=== PATIENT | male | born 1985 | race Caucasian/White ===

== ENCOUNTER 2020-05-17 04:53 | Emergency (ER) | payer OTHER, SELFPAY ==
[2020-05-17 05:09] VITALS: PULSE 93; RESP 18; TEMP 36.8; O2SAT 95; BMI 26.6
--- NOTE | 2020-05-17 05:30 | ED.PSYCH ---
HPI - Psych General Chief Complaint: Psychiatric Symptoms Stated Complaint: section 12 Time Seen by Provider: 05/17/20 05:13 Related Data Allergies Allergy/AdvReac Type Severity Reaction Status Date / Time No Known Allergies Allergy Unverified 02/03/20 16:30 [No Known Allergies*] Review of Systems Review of Systems: Pertinent positives and negatives as stated in HPI 10 point review of systems is otherwise negative. PMFSH Past Medical History Source: nursing notes reviewed Social History Social History Alcohol intake: never Smoking Status: Current every day smoker Use of substances other than those prescribed or required for medical reasons: No Advance Directives: No Advance Directives Information Provided: No Physical Exam Vital Signs: Vital Signs: Last Vital Signs Temp 98.2 F 05/17/20 05:09 Pulse 93 05/17/20 05:09 Resp 18 05/17/20 05:09 Pulse Ox 95 05/17/20 05:09 Body Mass Index 26.6 VITAL SIGNS: Reviewed. GENERAL: Well developed, well nourished, in no acute distress. NECK: Supple, no adenopathy LUNGS: Normal breath sounds. No adventitious sounds or accessory muscle use. SpO2<95> CARDIOVASCULAR: Regular rate and rhythm without noted murmurs ABDOMEN: Soft, non-tender, non-distended with bowel sounds. NEUROLOGIC: Alert and oriented x 4. PSYCH: Mild raj, no grandiose thoughts, logical thought process Course Course Course Narrative: This is a 34-year-old male with history and clinical presentation consistent with behavioral outburst secondary to poorly managed bipolar condition. However, patient is not suicidal or homicidal and wishes to be discharged so that he can go to work. He is assessed to have logical thought process with a clear plan for his day. Patient was provided with community resources should he wish to pursue those. In addition, patient was strongly encouraged to return to the emergency department if he began feeling depressed, out of control, or simply felt that he needs someone to speak with. He was discharged in stable condition. MDM - Psych Restraints Face to Face Assessment: Face to Face Assessment: Current Situation: After assessment of the patient, a review of the pertinent medical record and a discussion with nursing staff, I feel the patient requires a restrain intervention. Reaction To: [] Medical Condition: [] Behavioral State: [] Continued Need: [] Discharge Plan Discharge Clinical Impression: Bipolar I disorder with raj Patient Disposition: Home, Self-Care Instructions: Bipolar Disorder (ED) Additional Instructions: Resume all home medications as prescribed. Please do not hesitate to seek help by calling 911 and returning to this emergency department for further evaluation should you feel depressed or suicidal at any time. Please follow-up with the list of therapists and resources that you have been provided. Interventions: ED Discharge Assessment Last Done: 05/17/20 05:54 Discharge Date/Time: 05/17/20 05:57
== END 2020-05-17 05:57 | disposition home or self-care (01) ==
PROVIDERS: Emergency Provider Student in an Organized Health Care Education/Training Program
DX: F30.9 Manic episode, unspecified (principal); F17.200 Nicotine dependence, unspecified, uncomplicated
CPT/HCPCS: 99284

== ENCOUNTER 2020-05-29 23:35 | Inpatient (IN) | payer OTHER, MEDICAID, SELFPAY ==
[2020-05-29 23:54] VITALS: BP 113/73; PULSE 70; RESP 18; TEMP 36.5; O2SAT 96; BMI 26.6
[2020-05-30 00:02] VITALS: BP 113/73; PULSE 70; RESP 18; TEMP 36.5; O2SAT 96
[2020-05-30 01:23] LABS: MANUAL DIFF FLAG NO
[2020-05-30 01:34] LABS: Basophils Percent Auto 0.2 % (0-2); Eosinophils Absolute Auto 0.2 X10*3/uL (0.0-0.4); Hematocrit 34.3 % (42-52); Hemoglobin 12.1 g/dl (14.0-18.0); Imm Gran Abs Auto 0.02 X10*3/uL (0.00-0.03); Imm Gran Pct Auto 0.3 % (0.0-0.4); Lymphocytes Absolute Auto 1.8 X10*3/uL (1.2-4.9); Lymphocytes Percent Auto 29.9 % (20-40); Mean Corpuscular HGB Conc 35.3 g/dl (31.0-36.0); Mean Corpuscular Hemoglobin 30.4 pg (27.0-33.0); Mean Corpuscular Volume 86.2 fL (80-98); Monocytes Absolute Auto 0.4 X10*3/uL (0.1-1.2); Monocytes Percent Auto 5.9 % (2-11); Neutrophils Absolute Auto 3.6 X10*3/uL (2.0-8.3); Neutrophils Percent Auto 60.7 % (45-73); Platelet Count 202 X10*3/uL (160-400); Red Blood Count 3.98 X10*6/uL (4.60-5.80); Red Cell Distribution Width 12.3 % (11.0-16.0)
[2020-05-30 01:48] LABS: Ethanol < 10 mg/dL
[2020-05-30 01:52] LABS: Alanine Aminotransferase 22 U/L (0-40); Albumin Level 4.1 g/dL (3.5-5.0); Alkaline Phosphatase 63 U/L (39-117); Anion Gap 12 (12-20); Aspartate Amino Transferase 32 U/L (5-37); Bilirubin Direct 0.2 mg/dL (0.0-0.5); Bilirubin Total 0.3 mg/dL (0.0-1.0); Blood Urea Nitrogen 14 mg/dL (9-16); Carbon Dioxide 29 mmol/L (22-29); Chloride 104 mmol/L (96-108); Creatinine Clr Calc Pharmacy 118.7; Estimated Glomerular Filt Rate > 60; Glucose Random 186 mg/dL (60-115); Potassium 3.8 mmol/l (3.3-5.1); Sodium 141 mmol/L (135-145); Total Protein 6.3 g/dL (6.5-8.0)
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
[2020-05-30] MEDS: traZODone HCL 100 MG TABLET PO (02:50)
[2020-05-30] MEDS: LORazepam 2 MG/ML VIAL IM (02:50)
--- NOTE | 2020-05-30 03:05 | PC.NURSE ---
Patient after talking with care team got severely agitated over unit's commotion, particularly towards a patient who has been yelling and screaming by saying, If I don't sleep no one sleeps. Patient was redirected offered medication options, requested Ativan IM/provider notified/ordered Ativan 2 mg IM/administered as ordered/patient compliant. Will continue to monitor.
--- NOTE | 2020-05-30 07:15 | PC.NURSE ---
Report received from GUTIERREZ Hagan. Pt resting, resp unlabored.
[2020-05-30 08:00] VITALS: RESP 20
[2020-05-30 10:00] VITALS: RESP 16
--- NOTE | 2020-05-30 10:55 | PC.NURSE ---
Pt resting, resp unlabored. When pt woke for medications he reported that he had slept well. no concerns reported.
--- NOTE | 2020-05-30 10:56 | PC.NURSE ---
[facility] called to confirm that they are aware of the patient. Per N, a clinician has been assigned and will be here soon.
[2020-05-30 12:00] VITALS: RESP 18
--- NOTE | 2020-05-30 12:30 | PC.NURSE ---
[facility] in to evaluate pt
--- NOTE | 2020-05-30 13:18 | PC.NURSE ---
Pt seen by beth, currently pt is pleasant, eating lunch, no concerns reported.
[2020-05-30 13:19] LABS: Amphetamine Screen Urine Not Detected (Not Detect); Barbiturates, Urine Not Detected (Not Detect); Benzodiazepines Screen Urine POSITIVE (Not Detect); Cannabinoid Screen Urine POSITIVE (Not Detect); Cocaine Screen Urine POSITIVE (Not Detect); Opiate Screen Urine POSITIVE (Not Detect); Phencyclidine Screen Urine Not Detected (Not Detect)
--- NOTE | 2020-05-30 14:46 | PC.NURSE ---
Pt resting, resp unlabored.
[2020-05-30] MEDS: Nicotine Polacrilex 2 MG GUM BUCCAL (15:43)
[2020-05-30] MEDS: LORazepam 1 MG TABLET 2 MG PO (15:43)
[2020-05-30 16:12] VITALS: BP 125/100; PULSE 74; RESP 18; TEMP 36.5; O2SAT 97
--- NOTE | 2020-05-30 16:26 | PC.NURSE ---
Pt out in common area, hyperverbal, conversing w/ staff. Crisis process and inpatient process explained to pt. Pt medicated as ordered for anxiety.
[2020-05-30 18:00] VITALS: RESP 20
--- NOTE | 2020-05-30 18:47 | PC.NURSE ---
Pt resting, resp unlabored
--- NOTE | 2020-05-30 20:21 | PC.NURSE ---
Patient is in patient bed search per report, currently in bed appears sleeping, no distress observed/reported, respiration +/=/non-labored bilaterally, will continue to monitor.
[2020-05-31] MEDS: traZODone HCL 100 MG TABLET PO (01:52)
--- NOTE | 2020-05-31 02:39 | PC.NURSE ---
Patient woke up earlier, requesting Trazodone, provider notified/ordered Trazodone 100 mg/administered as ordered, patient currently in bed appears sleeping, no distress observed/reported, will continue to monitor.
[2020-05-31 07:09] LABS: COVID-19 Test Negative (Negative); IDNOW Serial# 9DD0AD1C
[2020-05-31 08:10] VITALS: BP 110/59; PULSE 57; TEMP 36.8; O2SAT 94
--- NOTE | 2020-05-31 08:12 | ECG_ITS ---
Test Reason : CLEARANCE Blood Pressure : / mmHG Vent. Rate : 054 BPM Atrial Rate : 054 BPM P-R Int : 154 ms QRS Dur : 106 ms QT Int : 472 ms P-R-T Axes : 017 -06 -16 degrees QTc Int : 447 ms Sinus bradycardia with sinus arrhythmia Otherwise normal ECG When compared with ECG of 04-MAY-2018 18:57, No significant change was found Referred By: Fahad Acosta Electronically Signed By:JAYLON SOLOMON MD
[2020-05-31] MEDS: LORazepam 1 MG TABLET 2 MG PO ×2 (11:19→20:54)
--- NOTE | 2020-05-31 11:21 | PC.NURSE ---
patient requested ativan, spoke with provider, prn ativan was added to med list, patient medicated per order, will continue to monitor.
--- NOTE | 2020-05-31 11:41 | PC.NURSE ---
patient stating when he is sick of being held here against his will, patient states he needs get the last of his last using and then go away for a year. patient states that every drug addict knows that we have to use that one last time before getting help, pt states that he has all his drugs stashed and he will use. patient is stating he just wants a bed.
--- NOTE | 2020-05-31 11:48 | PC.NURSE ---
merline uribe called and stated this patient will be admitted to [facility] after 3pm today.
--- NOTE | 2020-05-31 12:45 | PC.NURSE ---
security called to notify staff that police will be coming in to deliver paperwork to this patient, charge nurse notified.
--- NOTE | 2020-05-31 13:09 | PC.NURSE ---
police have arrived with security to give patient paperwork and explain the paperwork to him.
--- NOTE | 2020-05-31 15:08 | PC.NURSE ---
Report received. Pt in common area talking with another pt, calm and cooperative, no complaints at this time.
[2020-05-31 15:45] VITALS: BP 115/62; PULSE 61; RESP 20; TEMP 36.6; O2SAT 98
[2020-05-31 18:30] VITALS: BP 119/58; PULSE 84; TEMP 36.3
[2020-05-31] MEDS: traZODone HCL 50 MG TABLET PO (20:55)
[2020-05-31] MEDS: hydrOXYzine HCL 25 MG TABLET PO (20:55)
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
[2020-06-01 06:15] VITALS: BP 117/80; PULSE 55; RESP 16; TEMP 36.3; O2SAT 97
[2020-06-01 07:00] VITALS: BMI 26.4
[2020-06-01 08:36] LABS: MANUAL DIFF FLAG NO
[2020-06-01 08:39] LABS: Basophils Percent Auto 0.4 % (0-2); Eosinophils Absolute Auto 0.2 X10*3/uL (0.0-0.4); Eosinophils Percent Auto 3.5 % (0-4); Hematocrit 39.9 % (42-52); Hemoglobin 13.8 g/dl (14.0-18.0); Imm Gran Abs Auto 0.01 X10*3/uL (0.00-0.03); Imm Gran Pct Auto 0.2 % (0.0-0.4); Lymphocytes Absolute Auto 1.7 X10*3/uL (1.2-4.9); Lymphocytes Percent Auto 31.1 % (20-40); Mean Corpuscular HGB Conc 34.6 g/dl (31.0-36.0); Mean Corpuscular Hemoglobin 29.8 pg (27.0-33.0); Mean Corpuscular Volume 86.2 fL (80-98); Mean Platelet Volume 9.7 fL (9.4-12.4); Monocytes Absolute Auto 0.3 X10*3/uL (0.1-1.2); Neutrophils Absolute Auto 3.2 X10*3/uL (2.0-8.3); Neutrophils Percent Auto 58.8 % (45-73); Platelet Count 234 X10*3/uL (160-400); Red Blood Count 4.63 X10*6/uL (4.60-5.80); Red Cell Distribution Width 12.3 % (11.0-16.0); White Blood Count 5.5 X10*3/uL (4.8-10.8)
[2020-06-01 09:05] LABS: Estimated Average Glucose 137 mg/dL; Hemoglobin A1c % 6.4 %
[2020-06-01] MEDS: Nicotine 21 MG PATCH.TD24 TRANSDERMA (09:05)
[2020-06-01 09:07] LABS: Alanine Aminotransferase 19 U/L (0-40); Albumin Level 4.1 g/dL (3.5-5.0); Alkaline Phosphatase 64 U/L (39-117); Anion Gap 12 (12-20); Aspartate Amino Transferase 21 U/L (5-37); Bilirubin Total 0.4 mg/dL (0.0-1.0); Blood Urea Nitrogen 8 mg/dL (9-16); Calcium 9.1 mg/dL (8.4-10.2); Carbon Dioxide 31 mmol/L (22-29); Chloride 103 mmol/L (96-108); Cholesterol 146 mg/dL; Creatinine Clr Calc Pharmacy 117.3; Estimated Glomerular Filt Rate > 60; Glucose Fasting 144 mg/dL (60-99); HDL Cholesterol 54 mg/dL; LDL Cholesterol Calculated 75 mg/dl; Potassium 3.9 mmol/l (3.3-5.1); Sodium 142 mmol/L (135-145); Total Protein 6.5 g/dL (6.5-8.0); Triglycerides 85 mg/dL
[2020-06-01 09:27] LABS: TSH reflex Free T4 0.12 mIU/mL (0.32-4.0)
[2020-06-01] MEDS: LORazepam 1 MG TABLET 2 MG PO (09:46)
[2020-06-01] MEDS: Nicotine Polacrilex 2 MG GUM 4 MG BUCCAL ×2 (09:48→22:00)
[2020-06-01 10:18] LABS: Free T4 (Free Thyroxine) 0.92 ng/dL (0.71-1.85)
[2020-06-01 11:18] LABS: Reflex LDLD? No
[2020-06-01 12:13] LABS: Folate 15.5 ng/mL (> or = 4.0); Vitamin B12 1200 pg/mL (200-900)
[2020-06-01] MEDS: Divalproex Sodium 500 MG TABLET.DR PO ×2 (14:19→20:53)
[2020-06-01] MEDS: QUEtiapine Fumarate 50 MG TABLET PO ×2 (16:28→20:52)
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
[2020-06-01] MEDS: QUEtiapine Fumarate 100 MG TABLET PO (20:52)
[2020-06-01] MEDS: hydrOXYzine HCL 25 MG TABLET PO (20:52)
[2020-06-01] MEDS: traZODone HCL 50 MG TABLET PO (20:52)
[2020-06-02 06:38] VITALS: BP 105/70; PULSE 65; TEMP 36.2; O2SAT 99
[2020-06-02] MEDS: Divalproex Sodium 500 MG TABLET.DR PO ×2 (09:21→20:25)
[2020-06-02] MEDS: Nicotine 21 MG PATCH.TD24 TRANSDERMA (09:22)
--- NOTE | 2020-06-02 12:43 | PC.NURSE ---
recieved phone call from Off. Storm from [facility] re:sect 35. (warrant is good until fri) he is aware that pt. is currently being treated for his psychiatric problem and we will notify them if pt is to be psychiatrically stable and dischargable before friday.
--- NOTE | 2020-06-02 13:23 | PC.NURSE ---
REFUSES FLU SHOT
[2020-06-02] MEDS: hydrOXYzine HCL 25 MG TABLET PO (20:24)
[2020-06-02] MEDS: traZODone HCL 50 MG TABLET PO (20:25)
[2020-06-02] MEDS: QUEtiapine Fumarate 100 MG TABLET PO (20:25)
--- NOTE | 2020-06-03 06:06 | HO.PSYCHPN ---
Subjective Subjective Date of Service: 06/02/20 Reason For Visit: bipolar substance abuse opiate use cocaine Subjective Notes: 3 Day Interim History: Pt reports improved sleep. Pt appears slightly less labile and hyperverbal. He reports he is interested in substance use treatment. Pt denies symptoms of depression. He denies SI/HI. He denies VH/AH. Pt has been visible in the unit. He has poor boundaries with some patient and needs redirection. Pt taking medications as prescribed. Medication Compliance: Yes Side effects from medications: No Attending Groups: Yes Review of Systems Reports system reviewed and no additional complaints, except as documented and Reports as per HPI Diagnostics Vital Signs (24Hr): Vital Signs - 24 hr 06/02/20 06:38 Temperature 97.2 F Pulse Rate 65 Blood Pressure 105/70 Pulse Oximetry 99 Body Mass Index 26.4 Labs Results: 06/01/20 08:08 06/01/20 08:08 Labs: Laboratory Results - last 48 hr 06/01/20 06/01/20 06/01/20 08:08 08:08 08:08 WBC 5.5 RBC 4.63 Hgb 13.8 L Hct 39.9 L MCV 86.2 MCH 29.8 MCHC 34.6 RDW 12.3 Plt Count 234 MPV 9.7 Immature Gran % (Auto) 0.2 Neut % (Auto) 58.8 Lymph % (Auto) 31.1 [place] % (Auto) 6.0 Eos % (Auto) 3.5 Baso % (Auto) 0.4 Lymph # (Auto) 1.7 [place] # (Auto) 0.3 Eos # (Auto) 0.2 Baso # (Auto) 0.0 Abs Immat Gran (auto) 0.01 Absolute Neuts (auto) 3.2 Absolute Nucleated RBC 0.000 Nucleated RBC % (auto) 0.0 Sodium 142 Potassium 3.9 Chloride 103 Carbon Dioxide 31 H Anion Gap 12 BUN 8 L Creatinine 0.85 Estim Creat Clear Calc 117.3 Estimated GFR > 60 Fasting Glucose 144 H Estimat Average Glucose 137 Hemoglobin A1c % 6.4 Calcium 9.1 Total Bilirubin 0.4 AST 21 ALT 19 Alkaline Phosphatase 64 Total Protein 6.5 Albumin 4.1 Triglycerides 85 Cholesterol 146 LDL Cholesterol, Calc 75 HDL Cholesterol 54 Vitamin B12 Folate TSH 0.12 L Free T4 0.92 06/01/20 06/01/20 08:08 08:08 WBC RBC Hgb Hct MCV MCH MCHC RDW Plt Count MPV Immature Gran % (Auto) Neut % (Auto) Lymph % (Auto) [place] % (Auto) Eos % (Auto) Baso % (Auto) Lymph # (Auto) [place] # (Auto) Eos # (Auto) Baso # (Auto) Abs Immat Gran (auto) Absolute Neuts (auto) Absolute Nucleated RBC Nucleated RBC % (auto) Sodium Potassium Chloride Carbon Dioxide Anion Gap BUN Creatinine Estim Creat Clear Calc Estimated GFR Fasting Glucose Estimat Average Glucose Hemoglobin A1c % Calcium Total Bilirubin AST ALT Alkaline Phosphatase Total Protein Albumin Triglycerides Cholesterol LDL Cholesterol, Calc HDL Cholesterol Vitamin B12 Cancelled 1200 H Folate Cancelled 15.5 TSH Free T4 Medications Medications Current Medications Generic Name Dose Route Start Last Admin Trade Name Freq PRN Reason Stop Dose Admin Acetaminophen 650 mg 05/31/20 18:50 Acetaminophen 325 Mg Tablet PO Q6H PRN Headache/Pain Mild Scale (1-3) Al Hydroxide/Mg Hydroxide 30 ml 05/31/20 18:50 Magnesium Hydrox/Alum Hydrox 30 Ml Oral.Susp PO Q6H PRN Heartburn/Nausea Divalproex Sodium 500 mg 06/01/20 13:50 06/02/20 20:25 Divalproex Sodium 500 Mg Tablet.Dr PO 500 mg BID JENSEN Administration Hydroxyzine HCl 25 mg 05/31/20 18:50 06/02/20 20:24 Hydroxyzine Hcl 25 Mg Tablet PO 25 mg BEDTIME PRN Administration Anxiety Magnesium Hydroxide 30 ml 05/31/20 18:50 Milk Of Magnesia 30 Ml Oral.Susp PO DAILY PRN Constipation Methadone HCl 70 mg 05/30/20 09:00 06/02/20 09:21 Methadone Hcl 1 Mg/0.1 Ml Oral.Conc PO 70 mg DAILY JENSEN Administration Nicotine 21 mg 06/01/20 09:00 06/02/20 09:22 Nicotine 21 Mg Patch.Td24 TRANSDERMA 21 mg DAILY JENSEN Administration Nicotine Polacrilex 4 mg 05/31/20 21:45 06/01/20 22:00 Nicotine Polacrilex 2 Mg Gum BUCCAL 4 mg Q2H PRN Administration Nicotine Cravings Quetiapine Fumarate 100 mg 06/01/20 21:00 06/02/20 20:25 Quetiapine Fumarate 100 Mg Tablet PO 100 mg BEDTIME JENSEN Administration Quetiapine Fumarate 50 mg 06/01/20 13:53 06/01/20 20:52 Quetiapine Fumarate 50 Mg Tablet PO 50 mg Q4H PRN Administration agitation Trazodone HCl 50 mg 05/31/20 18:50 06/02/20 20:25 Trazodone Hcl 50 Mg Tablet PO 50 mg BEDTIME PRN Administration Insomnia Allergies Allergies Allergy/AdvReac Type Severity Reaction Status Date / Time No Known Allergies Allergy Unverified 02/03/20 16:30 [No Known Allergies*] Assessment & Plan Assessment & Plan (1) Polysubstance (including opioids) dependence with physiological dependence: Status: Acute Code(s): F19.20 - Other psychoactive substance dependence, uncomplicated Assessment and Plan: 1. continue methadone 2. aftercare plan (2) Bipolar 1 disorder with moderate raj: Status: Acute Code(s): F31.12 - Bipolar disorder, current episode manic without psychotic features, moderate Assessment and Plan: 1. continue depakote 500mg po BID 2. increase seroquel to 50mg po daily and 100mg po qhs. Greater than 50% of the session was spent on counseling and/or coordination of care
[2020-06-03 06:35] VITALS: BP 110/75; PULSE 62; RESP 18; TEMP 36.4; O2SAT 97
[2020-06-03] MEDS: Nicotine 21 MG PATCH.TD24 TRANSDERMA (10:06)
[2020-06-03] MEDS: QUEtiapine Fumarate 50 MG TABLET PO ×2 (10:06→16:16)
[2020-06-03] MEDS: Divalproex Sodium 500 MG TABLET.DR PO (10:06)
[2020-06-03] MEDS: Divalproex Sodium 500 MG TABLET.DR 1000 MG PO (14:07)
[2020-06-03] MEDS: Nicotine Polacrilex 2 MG GUM 4 MG BUCCAL (16:16)
[2020-06-03 18:00] VITALS: BP 128/75; PULSE 88; TEMP 36.1
--- NOTE | 2020-06-03 18:20 | HO.PSYCHPN ---
Subjective Subjective Date of Service: 06/03/20 Reason For Visit: bipolar substance abuse opiate use cocaine Subjective Notes: 3 Day (06/06/20) Interim History: Pt experiencing raj-pressure of speech, intrusive, loud. Discussed titration of regime. He agrees Medication Compliance: Yes Side effects from medications: No Attending Groups: Yes Review of Systems Reports system reviewed and no additional complaints, except as documented, Reports as per HPI and Reports behavioral changes Psychiatric: Reports anxiety, Reports behavioral changes, Reports difficulty concentrating, Reports hopelessness, Reports irritability, Reports mood swings, Reports paranoia and Reports other (intrusive at times) Mental Status Exam Mental Status Exam Patient Appearance: Appropriate Patient Orientation: Person, Place, Time and Situation Level of Consciousness: Alert Patient Behavior: Talkative, Hyperactive, Suspicious, Restless, Anxious, Distractible and Confused Mood Description: Anxious, Labile, Nervous and Apprehensive Affect Description: Labile Patient Cognition Impaired: No Ability to Follow Directions: Good Speech Pattern: Spontaneous Speech, Rambling, Rapid, Excessive, Animated, Loud (at times) and Pressured Memory Description: Intact Hallucinations: None (denies) Delusions: Being Controlled (when reviewing warrants) Thought Process: Racing and Illogical (in some areas) Thought Content: positive for [place] Ideas and positive for Racing Depressive Symptoms: Increased Anxiety and Diff. Making Decisions Judgement: Fair Diagnostics Vital Signs (24Hr): Vital Signs - 24 hr 06/03/20 06:35 Temperature 97.6 F Pulse Rate 62 Respiratory Rate 18 Blood Pressure 110/75 Pulse Oximetry 97 Body Mass Index 26.4 Labs Results: 06/01/20 08:08 06/01/20 08:08 Medications Medications Current Medications Generic Name Dose Route Start Last Admin Trade Name Freq PRN Reason Stop Dose Admin Acetaminophen 650 mg 05/31/20 18:50 Acetaminophen 325 Mg Tablet PO Q6H PRN Headache/Pain Mild Scale (1-3) Al Hydroxide/Mg Hydroxide 30 ml 05/31/20 18:50 Magnesium Hydrox/Alum Hydrox 30 Ml Oral.Susp PO Q6H PRN Heartburn/Nausea Divalproex Sodium 500 mg 06/04/20 09:00 Divalproex Sodium 500 Mg Tablet.Dr PO DAILY JENSEN Hydroxyzine HCl 25 mg 05/31/20 18:50 06/02/20 20:24 Hydroxyzine Hcl 25 Mg Tablet PO 25 mg BEDTIME PRN Administration Anxiety Magnesium Hydroxide 30 ml 05/31/20 18:50 Milk Of Magnesia 30 Ml Oral.Susp PO DAILY PRN Constipation Methadone HCl 70 mg 05/30/20 09:00 06/03/20 10:08 Methadone Hcl 1 Mg/0.1 Ml Oral.Conc PO 70 mg DAILY JENSEN Administration Nicotine 21 mg 06/01/20 09:00 06/03/20 10:06 Nicotine 21 Mg Patch.Td24 TRANSDERMA 21 mg DAILY JENSEN Administration Nicotine Polacrilex 4 mg 05/31/20 21:45 06/03/20 16:16 Nicotine Polacrilex 2 Mg Gum BUCCAL 4 mg Q2H PRN Administration Nicotine Cravings Quetiapine Fumarate 100 mg 06/01/20 21:00 06/02/20 20:25 Quetiapine Fumarate 100 Mg Tablet PO 100 mg BEDTIME JENSEN Administration Quetiapine Fumarate 50 mg 06/01/20 13:53 06/03/20 16:16 Quetiapine Fumarate 50 Mg Tablet PO 50 mg Q4H PRN Administration agitation Quetiapine Fumarate 50 mg 06/03/20 09:00 06/03/20 10:06 Quetiapine Fumarate 50 Mg Tablet PO 50 mg DAILY JENSEN Administration Trazodone HCl 100 mg 06/03/20 18:18 Trazodone Hcl 100 Mg Tablet PO BEDTIME PRN insomnia Allergies Allergies Allergy/AdvReac Type Severity Reaction Status Date / Time No Known Allergies Allergy Unverified 02/03/20 16:30 [No Known Allergies*] Assessment & Plan Assessment & Plan (1) Bipolar 1 disorder with moderate raj: Status: Acute Code(s): F31.12 - Bipolar disorder, current episode manic without psychotic features, moderate Assessment and Plan: -Increase Depakote to 500 mg a.m. and 1000 mg HS -Increase Trazodone to 100 mg hs prn (by history, pt reports 300 mg HS) (2) Polysubstance (including opioids) dependence with physiological dependence: Status: Acute Code(s): F19.20 - Other psychoactive substance dependence, uncomplicated Assessment and Plan: Three day notice expires 06/06/20. Pt reports court date is 06/12/20. Greater than 50% of the session was spent on counseling and/or coordination of care
[2020-06-03] MEDS: QUEtiapine Fumarate 100 MG TABLET PO (20:41)
[2020-06-03] MEDS: traZODone HCL 100 MG TABLET PO (20:41)
[2020-06-03] MEDS: hydrOXYzine HCL 25 MG TABLET PO (20:41)
[2020-06-04 06:10] VITALS: BP 119/72; PULSE 53; RESP 16; TEMP 36.3; O2SAT 97
[2020-06-04] MEDS: Nicotine 21 MG PATCH.TD24 TRANSDERMA (10:05)
[2020-06-04] MEDS: QUEtiapine Fumarate 50 MG TABLET PO ×2 (10:05→21:22)
[2020-06-04] MEDS: Divalproex Sodium 500 MG TABLET.DR PO (10:05)
[2020-06-04 13:00] VITALS: BP 116/70; PULSE 62
[2020-06-04] MEDS: Nicotine Polacrilex 2 MG GUM 4 MG BUCCAL ×2 (14:33→20:37)
--- NOTE | 2020-06-04 17:26 | HO.PSYCHPN ---
Subjective Subjective Date of Service: 06/04/20 Reason For Visit: bipolar substance abuse opiate use cocaine Subjective Notes: 3 Day Interim History: Continues manic, with increased willingness for treatment. Review of meds, rationale for use. Medication Compliance: Yes Side effects from medications: No Attending Groups: Yes Review of Systems Review of Systems Yes all other systems are reviewed and are negative (denies current issues) Reports system reviewed and no additional complaints, except as documented, Reports as per HPI and Reports behavioral changes Psychiatric: Reports anxiety, Reports behavioral changes, Reports difficulty concentrating, Reports irritability and Reports mood swings Mental Status Exam Mental Status Exam Patient Appearance: Appropriate Patient Orientation: Person, Place, Time and Situation Level of Consciousness: Awake, Restless and Alert Patient Behavior: Talkative, Hyperactive, Cooperative, Restless, Wandering, Anxious, Distractible, Good Eye Contact, Impulsive and Pacing Mood Description: Euphoric, Cheerful, Anxious and Elated Affect Description: Labile Patient Cognition Impaired: No Ability to Follow Directions: Good Speech Pattern: Spontaneous Speech, Rapid, Animated, Loud (at times) and Excited Memory Description: Intact Hallucinations: None (denies) Delusions: Not Present Thought Process: Racing, Distracted and Goal Oriented Thought Content: positive for [place] and positive for Circumstantial Depressive Symptoms: Increased Anxiety Abnormal Motor Activity Signs and Symptoms: Hyperactivity Judgement: Fair Diagnostics Vital Signs (24Hr): Vital Signs - 24 hr 06/03/20 18:00 06/04/20 06:10 06/04/20 13:00 Temperature 97 F 97.4 F Pulse Rate 88 53 62 Respiratory Rate 16 Blood Pressure 128/75 119/72 116/70 Pulse Oximetry 97 Body Mass Index 26.4 Labs Results: 06/01/20 08:08 06/01/20 08:08 Medications Medications Current Medications Generic Name Dose Route Start Last Admin Trade Name Freq PRN Reason Stop Dose Admin Acetaminophen 650 mg 05/31/20 18:50 Acetaminophen 325 Mg Tablet PO Q6H PRN Headache/Pain Mild Scale (1-3) Al Hydroxide/Mg Hydroxide 30 ml 05/31/20 18:50 Magnesium Hydrox/Alum Hydrox 30 Ml Oral.Susp PO Q6H PRN Heartburn/Nausea Divalproex Sodium 500 mg 06/04/20 09:00 06/04/20 10:05 Divalproex Sodium 500 Mg Tablet.Dr PO 500 mg DAILY JENSEN Administration Hydroxyzine HCl 25 mg 05/31/20 18:50 06/03/20 20:41 Hydroxyzine Hcl 25 Mg Tablet PO 25 mg BEDTIME PRN Administration Anxiety Magnesium Hydroxide 30 ml 05/31/20 18:50 Milk Of Magnesia 30 Ml Oral.Susp PO DAILY PRN Constipation Methadone HCl 70 mg 05/30/20 09:00 06/04/20 10:05 Methadone Hcl 1 Mg/0.1 Ml Oral.Conc PO 70 mg DAILY JENSEN Administration Nicotine 21 mg 06/01/20 09:00 06/04/20 10:05 Nicotine 21 Mg Patch.Td24 TRANSDERMA 21 mg DAILY JENSEN Administration Nicotine Polacrilex 4 mg 05/31/20 21:45 06/04/20 14:33 Nicotine Polacrilex 2 Mg Gum BUCCAL 4 mg Q2H PRN Administration Nicotine Cravings Quetiapine Fumarate 100 mg 06/01/20 21:00 06/03/20 20:41 Quetiapine Fumarate 100 Mg Tablet PO 100 mg BEDTIME JENSEN Administration Quetiapine Fumarate 50 mg 06/01/20 13:53 06/03/20 16:16 Quetiapine Fumarate 50 Mg Tablet PO 50 mg Q4H PRN Administration agitation Quetiapine Fumarate 50 mg 06/03/20 09:00 06/04/20 10:05 Quetiapine Fumarate 50 Mg Tablet PO 50 mg DAILY JENSEN Administration Trazodone HCl 100 mg 06/03/20 18:18 06/03/20 20:41 Trazodone Hcl 100 Mg Tablet PO 100 mg BEDTIME PRN Administration insomnia Allergies Allergies Allergy/AdvReac Type Severity Reaction Status Date / Time No Known Allergies Allergy Unverified 02/03/20 16:30 [No Known Allergies*] Assessment & Plan Assessment & Plan (1) Bipolar 1 disorder with moderate raj: Status: Acute Code(s): F31.12 - Bipolar disorder, current episode manic without psychotic features, moderate Assessment and Plan: Continue Depakote 500mg a.m. 1000 mg HS Greater than 50% of the session was spent on counseling and/or coordination of care
[2020-06-04 18:00] VITALS: BP 145/88; PULSE 82; TEMP 36.8
[2020-06-04] MEDS: QUEtiapine Fumarate 100 MG TABLET PO (20:20)
[2020-06-04] MEDS: Divalproex Sodium 500 MG TABLET.DR 1000 MG PO (20:20)
[2020-06-04] MEDS: traZODone HCL 100 MG TABLET PO (21:22)
[2020-06-04] MEDS: hydrOXYzine HCL 25 MG TABLET PO (21:23)
[2020-06-05 06:10] VITALS: BP 117/67; PULSE 53; RESP 16; TEMP 36.8; O2SAT 96
[2020-06-05] MEDS: QUEtiapine Fumarate 50 MG TABLET PO ×2 (10:53→16:29)
[2020-06-05] MEDS: Divalproex Sodium 500 MG TABLET.DR PO (10:58)
[2020-06-05 11:02] VITALS: BP 134/84; PULSE 101; RESP 18; TEMP 36.5; O2SAT 100
[2020-06-05] MEDS: Nicotine 21 MG PATCH.TD24 TRANSDERMA (12:42)
--- NOTE | 2020-06-05 13:08 | HO.PSYCHPN ---
Subjective Subjective Date of Service: 06/05/20 Reason For Visit: bipolar substance abuse opiate use cocaine Interim History: Reviewed nursing notes. Pt seen with clinician JEN Wu. Pt tearful, reports thinking about his life, how little support he has from friends, how lonely and isolated he feels most of the time. He reports poor sleep last night. He thinks it's because he can't get prn ativan. Pt with limited insight into effects of his substance on relationships, ability to keep a job. At some point, pt reports I just need a higher paying job referring to his ability to get more substances on the streets. Pt also reports buying xanax and clonazepam on the streets. Pt reports he wants to continue substance use treatment. He states he does not want to be on methadone but instead switch to suboxone. Review of Systems Review of Systems Yes all other systems are reviewed and are negative (denies current issues) Reports system reviewed and no additional complaints, except as documented, Reports as per HPI and Reports behavioral changes Psychiatric: Reports behavioral changes Mental Status Exam Mental Status Exam Narrative: Appearance: disheveled, poor hygiene, in NAD Behavior: cooperative Psychomotor: restless, no tremors Speech: clear, pressured and hyperverbal, spontaneous TP: tangential/flight of ideas TC: wanting to start medications, no overt signs of psychosis noted Mood: okay Affect: dysphoric AH/VH: none Delusions: none Insight/judgment: poor x 2. Memory/cog: impaired secondary to psychiatric symptoms. Patient Appearance: Appropriate Patient Orientation: Person, Place, Time and Situation Level of Consciousness: Awake, Restless and Alert Patient Behavior: Talkative, Hyperactive, Cooperative, Restless, Wandering, Anxious, Distractible, Good Eye Contact, Impulsive and Pacing Mood Description: Euphoric, Cheerful, Anxious and Elated Affect Description: Labile Patient Cognition Impaired: No Ability to Follow Directions: Good Speech Pattern: Spontaneous Speech, Rapid, Animated, Loud (at times) and Excited Memory Description: Intact Diagnostics Vital Signs (24Hr): Vital Signs - 24 hr 06/04/20 18:00 06/05/20 06:10 06/05/20 11:02 Temperature 98.2 F 98.3 F 97.7 F Pulse Rate 82 53 101 H Respiratory Rate 16 18 Blood Pressure 145/88 H 117/67 134/84 Pulse Oximetry 96 100 Body Mass Index 26.4 Labs Results: 06/01/20 08:08 06/01/20 08:08 Medications Medications Current Medications Generic Name Dose Route Start Last Admin Trade Name Freq PRN Reason Stop Dose Admin Acetaminophen 650 mg 05/31/20 18:50 Acetaminophen 325 Mg Tablet PO Q6H PRN Headache/Pain Mild Scale (1-3) Al Hydroxide/Mg Hydroxide 30 ml 05/31/20 18:50 Magnesium Hydrox/Alum Hydrox 30 Ml Oral.Susp PO Q6H PRN Heartburn/Nausea Divalproex Sodium 500 mg 06/04/20 09:00 06/05/20 10:58 Divalproex Sodium 500 Mg Tablet. PO 500 mg DAILY JENSEN Administration Divalproex Sodium 1,000 mg 06/04/20 21:00 06/04/20 20:20 Divalproex Sodium 500 Mg Tablet. PO 1,000 mg BEDTIME JENSEN Administration Hydroxyzine HCl 25 mg 05/31/20 18:50 06/04/20 21:23 Hydroxyzine Hcl 25 Mg Tablet PO 25 mg BEDTIME PRN Administration Anxiety Magnesium Hydroxide 30 ml 05/31/20 18:50 Milk Of Magnesia 30 Ml Oral.Susp PO DAILY PRN Constipation Methadone HCl 70 mg 05/30/20 09:00 06/05/20 10:53 Methadone Hcl 1 Mg/0.1 Ml Oral.Conc PO 70 mg DAILY JENSEN Administration Nicotine 21 mg 06/01/20 09:00 06/05/20 12:42 Nicotine 21 Mg Patch.Td24 TRANSDERMA 21 mg DAILY JENSEN Administration Nicotine Polacrilex 4 mg 05/31/20 21:45 06/04/20 20:37 Nicotine Polacrilex 2 Mg Gum BUCCAL 4 mg Q2H PRN Administration Nicotine Cravings Quetiapine Fumarate 100 mg 06/01/20 21:00 06/04/20 20:20 Quetiapine Fumarate 100 Mg Tablet PO 100 mg BEDTIME JENSEN Administration Quetiapine Fumarate 50 mg 06/01/20 13:53 06/04/20 21:22 Quetiapine Fumarate 50 Mg Tablet PO 50 mg Q4H PRN Administration agitation Quetiapine Fumarate 50 mg 06/03/20 09:00 06/05/20 10:53 Quetiapine Fumarate 50 Mg Tablet PO 50 mg DAILY JENSEN Administration Trazodone HCl 100 mg 06/03/20 18:18 06/04/20 21:22 Trazodone Hcl 100 Mg Tablet PO 100 mg BEDTIME PRN Administration insomnia Allergies Allergies Allergy/AdvReac Type Severity Reaction Status Date / Time No Known Allergies Allergy Unverified 02/03/20 16:30 [No Known Allergies*] Assessment & Plan Assessment & Plan (1) Polysubstance (including opioids) dependence with physiological dependence: Status: Acute Code(s): F19.20 - Other psychoactive substance dependence, uncomplicated Assessment and Plan: 1. continue methadone- pt wants to switch to suboxone 2. aftercare plan (2) Bipolar 1 disorder with moderate raj: Status: Acute Code(s): F31.12 - Bipolar disorder, current episode manic without psychotic features, moderate Assessment and Plan: 1. continue depakote 500mg po daily and 1000mg po qhs. 2. increase seroquel to 100 mg po daily and 150mg po qhs. 3. check depakote level on 06/06/2020 Greater than 50% of the session was spent on counseling and/or coordination of care
[2020-06-05] MEDS: Nicotine Polacrilex 2 MG GUM 4 MG BUCCAL (16:29)
[2020-06-05] MEDS: LORazepam 1 MG TABLET PO ×2 (16:30→23:04)
[2020-06-05 18:00] VITALS: BP 143/85; PULSE 84; TEMP 36.6
[2020-06-05] MEDS: QUEtiapine Fumarate 200 MG TABLET PO (23:04)
[2020-06-05] MEDS: hydrOXYzine HCL 25 MG TABLET PO (23:04)
[2020-06-05] MEDS: traZODone HCL 100 MG TABLET PO (23:04)
[2020-06-05] MEDS: Divalproex Sodium 500 MG TABLET.DR 1000 MG PO (23:04)
[2020-06-06 06:20] VITALS: RESP 16
[2020-06-06] MEDS: QUEtiapine Fumarate 100 MG TABLET PO (10:26)
[2020-06-06] MEDS: Divalproex Sodium 500 MG TABLET.DR PO (10:26)
[2020-06-06] MEDS: Multivitamin TABLET 1 TAB PO (10:26)
[2020-06-06] MEDS: Nicotine 21 MG PATCH.TD24 TRANSDERMA (12:47)
--- NOTE | 2020-06-06 15:30 | HO.PSYCHPN ---
Subjective Subjective Date of Service: 06/06/20 Reason For Visit: bipolar substance abuse opiate use cocaine Interim History: Reviewed nursing notes. Pt reports feeling less anxious, less irritable or unable to control his reactions when he is angry. He reports he feels less explosive or less reactive. However, pt continues to present as hyperverbal, pressured speech as well. He reports he slept slightly better last night but would like trazodone to be increased. He continues to be somewhat intrusive with peers, needs redirection. He also continues to report that he is motivated to transition to substance use treatment program. He denies SI/HI. Review of Systems Review of Systems Yes all other systems are reviewed and are negative (denies current issues) Reports system reviewed and no additional complaints, except as documented, Reports as per HPI and Reports behavioral changes Psychiatric: Reports behavioral changes Mental Status Exam Mental Status Exam Narrative: Appearance: casually groomed, improved hygiene, in NAD Behavior: cooperative Psychomotor: restless, no tremors Speech: clear, pressured and hyperverbal, spontaneous TP: tangential/flight of ideas TC: wanting to start medications, no overt signs of psychosis noted Mood: okay Affect: dysphoric AH/VH: none Delusions: none Insight/judgment: poor x 2. Memory/cog: impaired secondary to psychiatric symptoms. Patient Orientation: Person, Place, Time and Situation Level of Consciousness: Awake, Restless and Alert Patient Behavior: Talkative, Hyperactive, Cooperative, Restless, Wandering, Anxious, Distractible, Good Eye Contact, Impulsive and Pacing Mood Description: Euphoric, Cheerful, Anxious and Elated Affect Description: Labile Patient Cognition Impaired: No Ability to Follow Directions: Good Speech Pattern: Spontaneous Speech, Rapid, Animated, Loud (at times) and Excited Memory Description: Intact Diagnostics Vital Signs (24Hr): Vital Signs - 24 hr 06/05/20 18:00 06/06/20 06:20 Temperature 97.8 F Pulse Rate 84 Respiratory Rate 16 Blood Pressure 143/85 H Body Mass Index 26.4 Labs Results: 06/01/20 08:08 06/01/20 08:08 Medications Medications Current Medications Generic Name Dose Route Start Last Admin Trade Name Freq PRN Reason Stop Dose Admin Acetaminophen 650 mg 05/31/20 18:50 Acetaminophen 325 Mg Tablet PO Q6H PRN Headache/Pain Mild Scale (1-3) Al Hydroxide/Mg Hydroxide 30 ml 05/31/20 18:50 Magnesium Hydrox/Alum Hydrox 30 Ml Oral.Susp PO Q6H PRN Heartburn/Nausea Divalproex Sodium 500 mg 06/04/20 09:00 06/06/20 10:26 Divalproex Sodium 500 Mg Tablet. PO 500 mg DAILY JENSEN Administration Divalproex Sodium 1,000 mg 06/04/20 21:00 06/05/20 23:04 Divalproex Sodium 500 Mg Tablet. PO 1,000 mg BEDTIME JNESEN Administration Hydroxyzine HCl 25 mg 05/31/20 18:50 06/05/20 23:04 Hydroxyzine Hcl 25 Mg Tablet PO 25 mg BEDTIME PRN Administration Anxiety Lorazepam 1 mg 06/05/20 13:23 06/05/20 23:04 Lorazepam 1 Mg Tablet PO 1 mg Q6H PRN Administration benzodiazepine withdrawal Magnesium Hydroxide 30 ml 05/31/20 18:50 Milk Of Magnesia 30 Ml Oral.Susp PO DAILY PRN Constipation Methadone HCl 70 mg 05/30/20 09:00 06/06/20 10:26 Methadone Hcl 1 Mg/0.1 Ml Oral.Conc PO 70 mg DAILY JENSEN Administration Multivitamins/Vitamin C 1 tab 06/06/20 09:00 06/06/20 10:26 Multivitamin Tablet PO 1 tab DAILY JENSEN Administration Nicotine 21 mg 06/01/20 09:00 06/06/20 12:47 Nicotine 21 Mg Patch.Td24 TRANSDERMA 21 mg DAILY JENSEN Administration Nicotine Polacrilex 4 mg 05/31/20 21:45 06/05/20 16:29 Nicotine Polacrilex 2 Mg Gum BUCCAL 4 mg Q2H PRN Administration Nicotine Cravings Quetiapine Fumarate 50 mg 06/01/20 13:53 06/05/20 16:29 Quetiapine Fumarate 50 Mg Tablet PO 50 mg Q4H PRN Administration agitation Quetiapine Fumarate 200 mg 06/05/20 21:00 06/05/20 23:04 Quetiapine Fumarate 200 Mg Tablet PO 200 mg BEDTIME JENSEN Administration Quetiapine Fumarate 100 mg 06/06/20 09:00 06/06/20 10:26 Quetiapine Fumarate 100 Mg Tablet PO 100 mg DAILY JENSEN Administration Trazodone HCl 150 mg 06/06/20 21:00 Trazodone Hcl 50 Mg Tablet PO BEDTIME JENSEN Allergies Allergies Allergy/AdvReac Type Severity Reaction Status Date / Time No Known Allergies Allergy Unverified 02/03/20 16:30 [No Known Allergies*] Assessment & Plan Assessment & Plan (1) Polysubstance (including opioids) dependence with physiological dependence: Status: Acute Code(s): F19.20 - Other psychoactive substance dependence, uncomplicated Assessment and Plan: 1. continue methadone- pt wants to switch to suboxone 2. aftercare plan (2) Bipolar 1 disorder with moderate raj: Status: Acute Code(s): F31.12 - Bipolar disorder, current episode manic without psychotic features, moderate Assessment and Plan: 1. continue depakote 500mg po daily and 1000mg po qhs. 2. continue seroquel to 100 mg po daily and 200mg po qhs. 3. check depakote level on 06/08/2020 4. Increase trazodone to 150mg po qhs Greater than 50% of the session was spent on counseling and/or coordination of care
[2020-06-06 16:00] VITALS: BP 115/86; PULSE 95; TEMP 36.4
[2020-06-06] MEDS: Nicotine Polacrilex 2 MG GUM 4 MG BUCCAL ×2 (16:16→21:39)
[2020-06-06] MEDS: QUEtiapine Fumarate 50 MG TABLET PO ×2 (16:16→22:37)
[2020-06-06] MEDS: LORazepam 1 MG TABLET PO ×2 (16:16→22:37)
--- NOTE | 2020-06-06 17:31 | HO.ADDICT_ITS ---
History of Present Illness Date of Service: 06/06/2020 Chief Complaint: bipolar substance abuse opiate use cocaine Reason for Consult: Consider transition from methadone to buprenorphine Requesting physician: Elham Joseph Discussed with referring provider: Yes Sources of Information: patient interviewed and chart reviewed HPI Narrative: Patient is a 34 year old male with history of Biploar disorder, OUD and cocaine use. Currently psychiatrically admitted for suicidal ideation, raj and substance use Consult requested as patient is currently on 70mg of methadone and is inquiring about transitioning to buprenorphine Patient seen in room 508. Awake, alert, pleasant and engaged in interview. He is hyperverbal and pressured, but redirectable. He reports long history of opioid and cocaine use. Reports longerst period in recovery was 8 years. Began using again about 3 years ago. He has been both inpatient and outpatient treatment for [facility]. Reports long hist ory of substance use from a very young age. He is forthcoming in his challenges with stopping current use and reports that his racing thoughts and overwhelming emotions are often a trigger to use. He reports he currently has no stable place to live. He is frustrated by the episodes of crying he has experienced during this admission, feels overwhelming to him. Past Psychiatric History: Inpatient: pt reports one previous psychiatric admission at age of 13. OP: no current providers Suicide attempts: pt denies. Medical Evaluation Reviewed: Yes Review of Systems Constitutional: Reports as per HPI and Reports no additional constitutional complaints Diagnostics Vital Signs (24Hr): Vital Signs - 24 hr 06/05/20 18:00 06/06/20 06:20 06/06/20 16:00 Temperature 97.8 F 97.6 F Pulse Rate 84 95 Respiratory Rate 16 Blood Pressure 143/85 H 115/86 Body Mass Index 26.4 Labs Results: 06/01/20 08:08 06/01/20 08:08 Mental Status Exam Mental Status Exam Patient Appearance: Well Grooomed Patient Orientation: Person, Place, Time and Situation Level of Consciousness: Awake, Appropriate and Alert Patient Behavior: Appropriate and Talkative Mood Description: Relaxed Affect Description: Anxious Ability to Follow Directions: Excellent Speech Pattern: Clear and Pressured Hallucinations: None Delusions: Not Present Thought Process: Distracted and Rumination Thought Content: positive for Circumstantial Judgement: Fair Medications Medications Current Medications Generic Name Dose Route Start Last Admin Trade Name Freq PRN Reason Stop Dose Admin Acetaminophen 650 mg 05/31/20 18:50 Acetaminophen 325 Mg Tablet PO Q6H PRN Headache/Pain Mild Scale (1-3) Al Hydroxide/Mg Hydroxide 30 ml 05/31/20 18:50 Magnesium Hydrox/Alum Hydrox 30 Ml Oral.Susp PO Q6H PRN Heartburn/Nausea Divalproex Sodium 500 mg 06/04/20 09:00 06/06/20 10:26 Divalproex Sodium 500 Mg Tablet. PO 500 mg DAILY JENSEN Administration Divalproex Sodium 1,000 mg 06/04/20 21:00 06/05/20 23:04 Divalproex Sodium 500 Mg Tablet. PO 1,000 mg BEDTIME JENSEN Administration Hydroxyzine HCl 25 mg 05/31/20 18:50 06/05/20 23:04 Hydroxyzine Hcl 25 Mg Tablet PO 25 mg BEDTIME PRN Administration Anxiety Lorazepam 1 mg 06/05/20 13:23 06/06/20 16:16 Lorazepam 1 Mg Tablet PO 1 mg Q6H PRN Administration benzodiazepine withdrawal Magnesium Hydroxide 30 ml 05/31/20 18:50 Milk Of Magnesia 30 Ml Oral.Susp PO DAILY PRN Constipation Methadone HCl 70 mg 05/30/20 09:00 06/06/20 10:26 Methadone Hcl 1 Mg/0.1 Ml Oral.Conc PO 70 mg DAILY JENSEN Administration Multivitamins/Vitamin C 1 tab 06/06/20 09:00 06/06/20 10:26 Multivitamin Tablet PO 1 tab DAILY JENSEN Administration Nicotine 21 mg 06/01/20 09:00 06/06/20 12:47 Nicotine 21 Mg Patch.Td24 TRANSDERMA 21 mg DAILY JENSEN Administration Nicotine Polacrilex 4 mg 05/31/20 21:45 06/06/20 16:16 Nicotine Polacrilex 2 Mg Gum BUCCAL 4 mg Q2H PRN Administration Nicotine Cravings Quetiapine Fumarate 50 mg 06/01/20 13:53 06/06/20 16:16 Quetiapine Fumarate 50 Mg Tablet PO 50 mg Q4H PRN Administration agitation Quetiapine Fumarate 200 mg 06/05/20 21:00 06/05/20 23:04 Quetiapine Fumarate 200 Mg Tablet PO 200 mg BEDTIME JENSEN Administration Quetiapine Fumarate 100 mg 06/06/20 09:00 06/06/20 10:26 Quetiapine Fumarate 100 Mg Tablet PO 100 mg DAILY JENSEN Administration Trazodone HCl 150 mg 06/06/20 21:00 Trazodone Hcl 50 Mg Tablet PO BEDTIME JENSEN Allergies Allergies Allergy/AdvReac Type Severity Reaction Status Date / Time No Known Allergies Allergy Unverified 02/03/20 16:30 [No Known Allergies*] Assessment & Plan Assessment & Plan (1) Opioid use disorder: Status: Acute Code(s): F11.99 - Opioid use, unspecified with unspecified opioid-induced disorder Recommendations: * Discussed need to reduce methadone dose to at least 30mg prior to being able to transition to buprenorphine * taper could start here by decreasing 5mg now * will need to continue taper with OTP * schedule intake appt with [facility] prior to discharge to ensure patient has support in coordinating transition Greater than 50% of the session was spent on counseling and/or coordination of care PMFSH Past Medical History Medical History (Updated 06/06/20 @ 17:42 by Riddhi Schaffer CNP) ADHD Anxiety Surgical History Surgical History (Updated 05/31/20 @ 19:42 by Jake Allen RN) No history of previous surgery Social History Social History Household Members: Family Housing: House Do you presently have visiting nurse or other home services: No Alcohol intake: never Smoking Status: Current every day smoker Tobacco Type: Cigarette Smoked in Last 30 Days: Yes Patient Interested in Nicotine Replacement: Yes Patient Given Instructions on How to Stop Smoking: Yes Date Education Initiated: 06/02/20 Second Hand Smoke Exposure: No Substance Use Type: Crack/Cocaine, Marijuana and Opiates Substance Use Frequency: Weekly Last Used Substance: Just Prior to Admission Currently Displaying Signs/Symptoms of Drug Intoxication Withdrawal: No Any prior treatment program specific to substance use: Yes (2 months) Have you been hit, kicked, punched, or otherwise hurt by someone within the past year? If so, by whom?: No Do you feel safe in your current relationship?: No Current Relationship Spiritual Healthcare Practices: yazdanism Advance Directives: No Do you have thoughts of harming others: None Do you have a plan to hurt others: No Plan Recently lost weight without trying: No service: No Sexual orientation: Straight/Heterosexual
[2020-06-06] MEDS: traZODone HCL 50 MG TABLET 150 MG PO (21:32)
[2020-06-06] MEDS: QUEtiapine Fumarate 200 MG TABLET PO (21:33)
[2020-06-06] MEDS: hydrOXYzine HCL 25 MG TABLET PO (21:33)
[2020-06-06] MEDS: Divalproex Sodium 500 MG TABLET.DR 1000 MG PO (21:33)
[2020-06-07 06:10] VITALS: BP 116/81; PULSE 62; RESP 16; TEMP 36.4; O2SAT 98
[2020-06-07] MEDS: Multivitamin TABLET 1 TAB PO (11:34)
[2020-06-07] MEDS: Divalproex Sodium 500 MG TABLET.DR PO (11:35)
[2020-06-07] MEDS: QUEtiapine Fumarate 100 MG TABLET PO (11:35)
[2020-06-07] MEDS: Nicotine 21 MG PATCH.TD24 TRANSDERMA (11:42)
--- NOTE | 2020-06-07 12:58 | P.PNPSI_ITS ---
Subjective Subjective Date of Service: 06/07/20 Reason For Visit: bipolar substance abuse opiate use cocaine Subjective Notes: 3 Day Interim History: Reviewed nursing notes. Pt signed 3 day notice. Pt reports he had incident with peer, who accused him of inappropriate touch. Pt reports he was very upset as that was not the case. He reports he was able to walk away and went to room. Staff present and deescalated female peers who was agitated. He reports fair sleep. He reports he would like to continue OP substance use treatment. He appears less intrusive, but continues with poor boundaries Medication Compliance: Yes Side effects from medications: No Attending Groups: Yes Review of Systems Review of Systems Yes all other systems are reviewed and are negative (denies current issues) Reports system reviewed and no additional complaints, except as documented, Repo rts as per HPI and Reports behavioral changes Psychiatric: Reports behavioral changes Mental Status Exam Mental Status Exam Narrative: Appearance: casually groomed, improved hygiene, in NAD Behavior: cooperative Psychomotor: restless, no tremors Speech: clear, pressured and hyperverbal, spontaneous TP: tangential/flight of ideas TC: wanting to start medications, no overt signs of psychosis noted Mood: okay Affect: dysphoric AH/VH: none Delusions: none Insight/judgment: poor x 2. Memory/cog: impaired secondary to psychiatric symptoms. Patient Appearance: Well Grooomed Patient Orientation: Person, Place, Time and Situation Level of Consciousness: Awake, Appropriate and Alert Patient Behavior: Appropriate and Talkative Mood Description: Relaxed Affect Description: Anxious Patient Cognition Impaired: No Ability to Follow Directions: Excellent Speech Pattern: Clear and Pressured Memory Description: Intact Diagnostics Vital Signs (24Hr): Vital Signs - 24 hr 06/06/20 16:00 06/07/20 06:10 Temperature 97.6 F 97.6 F Pulse Rate 95 62 Respiratory Rate 16 Blood Pressure 115/86 116/81 Pulse Oximetry 98 Body Mass Index 26.4 Labs Results: 06/01/20 08:08 06/01/20 08:08 Medications Medications Current Medications Generic Name Dose Route Start Last Admin Trade Name Freq PRN Reason Stop Dose Admin Acetaminophen 650 mg 05/31/20 18:50 Acetaminophen 325 Mg Tablet PO Q6H PRN Headache/Pain Mild Scale (1-3) Al Hydroxide/Mg Hydroxide 30 ml 05/31/20 18:50 Magnesium Hydrox/Alum Hydrox 30 Ml Oral.Susp PO Q6H PRN Heartburn/Nausea Divalproex Sodium 500 mg 06/04/20 09:00 06/07/20 11:35 Divalproex Sodium 500 Mg Tablet. PO 500 mg DAILY JENSEN Administration Divalproex Sodium 1,000 mg 06/04/20 21:00 06/06/20 21:33 Divalproex Sodium 500 Mg Tablet. PO 1,000 mg BEDTIME JENSEN Administration Hydroxyzine HCl 25 mg 05/31/20 18:50 06/06/20 21:33 Hydroxyzine Hcl 25 Mg Tablet PO 25 mg BEDTIME PRN Administration Anxiety Lorazepam 1 mg 06/05/20 13:23 06/06/20 22:37 Lorazepam 1 Mg Tablet PO 1 mg Q6H PRN Administration benzodiazepine withdrawal Magnesium Hydroxide 30 ml 05/31/20 18:50 Milk Of Magnesia 30 Ml Oral.Susp PO DAILY PRN Constipation Methadone HCl 70 mg 05/30/20 09:00 06/07/20 11:35 Methadone Hcl 1 Mg/0.1 Ml Oral.Conc PO 70 mg DAILY JENSEN Administration Multivitamins/Vitamin C 1 tab 06/06/20 09:00 06/07/20 11:34 Multivitamin Tablet PO 1 tab DAILY JENSEN Administration Nicotine 21 mg 06/01/20 09:00 06/07/20 11:42 Nicotine 21 Mg Patch.Td24 TRANSDERMA 21 mg DAILY JENSEN Administration Nicotine Polacrilex 4 mg 05/31/20 21:45 06/06/20 21:39 Nicotine Polacrilex 2 Mg Gum BUCCAL 4 mg Q2H PRN Administration Nicotine Cravings Quetiapine Fumarate 50 mg 06/01/20 13:53 06/06/20 22:37 Quetiapine Fumarate 50 Mg Tablet PO 50 mg Q4H PRN Administration agitation Quetiapine Fumarate 200 mg 06/05/20 21:00 06/06/20 21:33 Quetiapine Fumarate 200 Mg Tablet PO 200 mg BEDTIME JENSEN Administration Quetiapine Fumarate 100 mg 06/06/20 09:00 06/07/20 11:35 Quetiapine Fumarate 100 Mg Tablet PO 100 mg DAILY JENSEN Administration Trazodone HCl 150 mg 06/06/20 21:00 06/06/20 21:32 Trazodone Hcl 50 Mg Tablet PO 150 mg BEDTIME JENSEN Administration Allergies Allergies Allergy/AdvReac Type Severity Reaction Status Date / Time No Known Allergies Allergy Unverified 02/03/20 16:30 [No Known Allergies*] Assessment & Plan Assessment & Plan (1) Opioid use disorder: Status: Acute Code(s): F11.99 - Opioid use, unspecified with unspecified opioid-induced disorder Assessment and Plan: * Discussed need to reduce methadone dose to at least 30mg prior to being able to transition to buprenorphine * taper could start here by decreasing 5mg now * will need to continue taper with OTP * schedule intake appt with [facility] prior to discharge to ensure patient has support in coordinating transition Greater than 50% of the session was spent on counseling and/or coordination of care
[2020-06-07] MEDS: LORazepam 1 MG TABLET PO ×2 (16:51→22:20)
[2020-06-07] MEDS: QUEtiapine Fumarate 50 MG TABLET PO (16:51)
[2020-06-07] MEDS: Nicotine Polacrilex 2 MG GUM 4 MG BUCCAL ×2 (16:51→22:22)
[2020-06-07] MEDS: QUEtiapine Fumarate 200 MG TABLET PO (22:20)
[2020-06-07] MEDS: Divalproex Sodium 500 MG TABLET.DR 1000 MG PO (22:20)
[2020-06-07] MEDS: traZODone HCL 50 MG TABLET 150 MG PO (22:23)
[2020-06-08 07:00] VITALS: BMI 26.8
[2020-06-08] MEDS: Divalproex Sodium 500 MG TABLET.DR PO ×2 (10:06→20:42)
[2020-06-08] MEDS: Multivitamin TABLET 1 TAB PO (10:06)
[2020-06-08] MEDS: Nicotine 21 MG PATCH.TD24 TRANSDERMA (10:07)
[2020-06-08] MEDS: QUEtiapine Fumarate 100 MG TABLET PO (10:07)
[2020-06-08 11:21] VITALS: BP 130/62; PULSE 67; TEMP 36.8
[2020-06-08] MEDS: Nicotine Polacrilex 2 MG GUM 4 MG BUCCAL (11:55)
[2020-06-08] MEDS: QUEtiapine Fumarate 50 MG TABLET PO ×2 (11:55→17:33)
--- NOTE | 2020-06-08 12:49 | P.PNPSI_ITS ---
Subjective Subjective Date of Service: 06/08/20 Reason For Visit: bipolar substance abuse opiate use cocaine Interim History: Reviewed nursing notes. Pt reports feeling more stable. He reports being less explosive and reactive when irritable or upset. He reports improved sleep/appetite. He does asked for increase of trazodone as he reports waking up few times at bedtime. He denies SI/HI. He has poor insight into his substance use. Review of Systems Review of Systems Yes all other systems are reviewed and are negative (denies current issues) Reports system reviewed and no additional complaints, except as documented, Reports as per HPI and Reports behavioral changes Psychiatric: Reports behavioral changes Mental Status Exam Mental Status Exam Narrative: Appearance: casually groomed, improved hygiene, in NAD Behavior: cooperative Psychomotor: restless, no tremors Speech: clear, pressured and hyperverbal, spontaneous TP: tangential/flight of ideas TC: wanting to start medications, no overt signs of psychosis noted Mood: okay Affect: less dysphoric AH/VH: none Delusions: none Insight/judgment: poor x 2. Memory/cog: impaired secondary to psychiatric symptoms. Diagnostics Vital Signs (24Hr): Vital Signs - 24 hr 06/08/20 11:21 Temperature 98.2 F Pulse Rate 67 Blood Pressure 130/62 Body Mass Index 26.8 Labs Results: 06/01/20 08:08 06/01/20 08:08 Medications Medications Current Medications Generic Name Dose Route Start Last Admin Trade Name Freq PRN Reason Stop Dose Admin Acetaminophen 650 mg 05/31/20 18:50 Acetaminophen 325 Mg Tablet PO Q6H PRN Headache/Pain Mild Scale (1-3) Al Hydroxide/Mg Hydroxide 30 ml 05/31/20 18:50 Magnesium Hydrox/Alum Hydrox 30 Ml Oral.Susp PO Q6H PRN Heartburn/Nausea Divalproex Sodium 500 mg 06/04/20 09:00 06/08/20 10:06 Divalproex Sodium 500 Mg Tablet. PO 500 mg DAILY JENSEN Administration Divalproex Sodium 1,000 mg 06/04/20 21:00 06/07/20 22:20 Divalproex Sodium 500 Mg Tablet. PO 1,000 mg BEDTIME JENSEN Administration Hydroxyzine HCl 25 mg 05/31/20 18:50 06/06/20 21:33 Hydroxyzine Hcl 25 Mg Tablet PO 25 mg BEDTIME PRN Administration Anxiety Lorazepam 1 mg 06/05/20 13:23 06/07/20 22:20 Lorazepam 1 Mg Tablet PO 1 mg Q6H PRN Administration benzodiazepine withdrawal Magnesium Hydroxide 30 ml 05/31/20 18:50 Milk Of Magnesia 30 Ml Oral.Susp PO DAILY PRN Constipation Methadone HCl 70 mg 05/30/20 09:00 06/08/20 10:07 Methadone Hcl 1 Mg/0.1 Ml Oral.Conc PO 70 mg DAILY JENSEN Administration Multivitamins/Vitamin C 1 tab 06/06/20 09:00 06/08/20 10:06 Multivitamin Tablet PO 1 tab DAILY JENSEN Administration Nicotine 21 mg 06/01/20 09:00 06/08/20 10:07 Nicotine 21 Mg Patch.Td24 TRANSDERMA 21 mg DAILY JENSEN Administration Nicotine Polacrilex 4 mg 05/31/20 21:45 06/08/20 11:55 Nicotine Polacrilex 2 Mg Gum BUCCAL 4 mg Q2H PRN Administration Nicotine Cravings Quetiapine Fumarate 50 mg 06/01/20 13:53 06/08/20 11:55 Quetiapine Fumarate 50 Mg Tablet PO 50 mg Q4H PRN Administration agitation Quetiapine Fumarate 200 mg 06/05/20 21:00 06/07/20 22:20 Quetiapine Fumarate 200 Mg Tablet PO 200 mg BEDTIME JENSEN Administration Quetiapine Fumarate 100 mg 06/06/20 09:00 06/08/20 10:07 Quetiapine Fumarate 100 Mg Tablet PO 100 mg DAILY JENSEN Administration Trazodone HCl 200 mg 06/08/20 21:00 Trazodone Hcl 100 Mg Tablet PO BEDTIME JENSEN Allergies Allergies Allergy/AdvReac Type Severity Reaction Status Date / Time No Known Allergies Allergy Unverified 02/03/20 16:30 [No Known Allergies*] Assessment & Plan Assessment & Plan (1) Opioid use disorder: Status: Acute Code(s): F11.99 - Opioid use, unspecified with unspecified opioid-induced disorder Assessment and Plan: * Discussed need to reduce methadone dose to at least 30mg prior to being able to transition to buprenorphine * taper could start here by decreasing 5mg now * will need to continue taper with OTP * schedule intake appt with [facility] prior to discharge to ensure patient has support in coordinating transition Greater than 50% of the session was spent on counseling and/or coordination of care
[2020-06-08] MEDS: QUEtiapine Fumarate 200 MG TABLET PO (20:42)
[2020-06-08] MEDS: traZODone HCL 100 MG TABLET 200 MG PO (20:42)
[2020-06-08] MEDS: LORazepam 1 MG TABLET PO (20:50)
[2020-06-08] MEDS: Divalproex Sodium 500 MG TABLET.DR 1000 MG PO (20:57)
[2020-06-09 06:30] VITALS: BP 106/68; PULSE 61; RESP 16; TEMP 36.6; O2SAT 96
[2020-06-09] MEDS: Multivitamin TABLET 1 TAB PO (08:42)
[2020-06-09] MEDS: Divalproex Sodium 500 MG TABLET.DR PO (08:42)
[2020-06-09] MEDS: Nicotine 21 MG PATCH.TD24 TRANSDERMA (08:42)
[2020-06-09] MEDS: QUEtiapine Fumarate 100 MG TABLET PO (08:42)
--- NOTE | 2020-06-09 09:08 | PM.PSYDC ---
DS: Providers Provider Date of Service: 06/09/20 Date of admission: 05/31/20 17:33 Primary care physician: Unknown Physician Consults: 06/05/20 13:27 Addiction Medicine Routine Consulting Provider: Riddhi Schaffer Reason for consultation: pt interested in switching from methadone to suboxone Has provider been notified: Yes Attending physician on discharge: Elham Joseph Discharging clinician: alaina green DS: Diagnosis Discharge Diagnosis (1) Opioid use disorder: Status: Acute (2) Bipolar 1 disorder with moderate raj: Status: Acute DS: Medications Discharge Medications Home Medications: Home Medications Medication Instructions Recorded Confirmed methadone 70 mg PO DAILY 05/30/20 05/30/20 Previous Rx's Medication Instructions Recorded divalproex 1,000 mg PO BEDTIME 30 Days #60 tab 06/09/20 divalproex 500 mg PO DAILY 30 Days #30 tab 06/09/20 multivitamin with folic acid 1 tab PO DAILY 30 Days #30 tab 06/09/20 [Tab-A-Wagner] nicotine 21 mg TRANSDERMAL DAILY 30 Days 06/09/20 #30 ea quetiapine 100 mg PO DAILY 30 Days #30 tab 06/09/20 quetiapine 200 mg PO BEDTIME 30 Days #30 tab 06/09/20 trazodone 200 mg PO BEDTIME 30 Days #60 tab 06/09/20 Discharge Plan Discharge Patient Disposition: Home, Self-Care Referrals: Physician,Unknown [Primary Care Provider] - Discharge Medications: New quetiapine 200 mg Tablet 200 mg PO BEDTIME 30 Days Qty: 30 RF: 0 divalproex 500 mg Tablet,Delayed Release (Dr/Ec) 1,000 mg PO BEDTIME 30 Days Qty: 60 RF: 0 divalproex 500 mg Tablet,Delayed Release (Dr/Ec) 500 mg PO DAILY 30 Days Qty: 30 RF: 0 quetiapine 100 mg Tablet 100 mg PO DAILY 30 Days Qty: 30 RF: 0 trazodone 100 mg Tablet 200 mg PO BEDTIME 30 Days Qty: 60 RF: 0 nicotine 21 mg/24 hr Patch 24 Hour 21 mg transdermal DAILY 30 Days Qty: 30 RF: 0 multivitamin with folic acid [Tab-A-Wagner] 400 mcg Tablet 1 tab PO DAILY 30 Days Qty: 30 RF: 0 Continued methadone 10 mg Tablet 70 mg PO DAILY RF: 0 Discharge Orders: Discharge Order (Routine); Ordered 06/09/20 Ordered By: Elham Joseph Diet: advance to usual diet Activity on Discharge: As tolerated Stand Alone Forms: Patient Portal Discharge page, Community Support Discharge Date/Time: 06/09/20 10:05 Visit Report Forms: Patient Portal Discharge page Care Plan Goals: 1. Follow up with referrals 2. Take medications as prescribed Health Concerns: 1. Follow up with PCP Plan of Treatment: 1. Follow up with referrals 2. Take medications as prescribed. DS: Summary Hospital Course Hospital Course: HPI Chief Complaint: bipolar substance abuse opiate use cocaine Sources of Information: patient interviewed, chart reviewed and crisis/core team assessment reviewed HPI Narrative: Mr. Fontaine is a 34 year-old male with hx of polysubstance use and bipolar disorder who was brought by police to ED due to increased agitation, threats to hurt his brother in context of substance use. Family recently filed section 35 on 05/30/2020. Pt apparently threatening to kill his brother because he refused to give him money to buy cocaine for the last time. This is his second inpatient admission. Last one apparently when patient was 13 years old and diagnosed with bipolar disorder. On the unit, pt presents as hyperverbal, flight of ideas, reporting he wants to go back on psychiatric medications because his mind is racing. He reports he does not think he needs methadone and wants to come off in exchange of psychotropic medications. He denies suicidal or homicidal ideation. He does to some extend admits loosing control with family due to his substance use but minimizes. His family also filed restraining order due to his threats. Pt reports poor sleep, cleaning compulsively at night. He denies history of visual or auditory hallucinations. We discussed risks, benefits and alternative treatment options. Pt agreed to start depakote for mood lability, racing thoughts, aggression and impulsivity. He also agrees to start seroquel for mood stabilization. EKG reviewed and will be monitored since pt also on methadone. Past Psychiatric History: Inpatient: pt reports one previous psychiatric admission at age of 13. OP: no current providers Suicide attempts: pt denies. HOSPITAL COURSE: On the unit, Mr. Fontaine initially presented as hyperverbal, pressured speech, flight of ideas. He denied suicidal or homicidal ideation. He admitted to easily losing control when agitated and when not able to get substances such as benzos and cocaine. He denied suicidal or homicidal ideation. He reported that he was motivated to continue substance use treatment although at times he states he just wanted to find a higher paying job so that he can use more substances. After discussing risks, benefits and alternative treatment options, pt agreed to start depakote, which he tolerated well and was tirated to 500mg po daily and 1000mg po qhs. He was started on seroquel, titrated to 100mg po daily and 200mg po qhs. He used trazodone 200mg po qhs for sleep with good effect. He was intrusive with peers, during groups he had difficulty letting other talk as he was hyperverbal and impulsive. This behavior decreased to some extend. Beside being intrusive with peers, he was able to be re directed. There were no need for restraints. He did not show any signs of aggression towards self or others. His sleep improved. He was eating better. Collateral information gathered from his mother, who filed section 35. He was picked up by [employer] officer on 06/09/2020. Status at Discharge Cognitive/behavioral status at discharge: Pt presents with no explosive behaviors, less hyperverbal and intrusive with others. He denied SI/HI. No signs of aggression towards self or others. Improved sleep/hygiene/appetite. Functional status at discharge: independent ambulation Overall status at discharge: patient is back to baseline Time Spent with Patient Time attestation: Total time spent providing and/or coordinating discharge services: Time spent: Less than 30 minutes
--- NOTE | 2020-06-09 10:16 | PC.NURSE ---
PT DISCHARGED ON 06/09/2020 AT 1005 ON A SECTION 35. PT WAS TAKEN OUT BY [facility]. PT WAS CALM AND COOPERATIVE WHILE LEAVING.
== END 2020-06-09 10:05 | disposition home or self-care (01) | DRG 885 ==
LOC: HO.ED 05-30 00:06 → HO.PM5 05-31 17:53
PROVIDERS: Emergency Medicine; Physician Assistant; Admitting Provider Psychiatry & Neurology Psychiatry; Emergency Provider Internal Medicine; Visit Provider Social Worker
DX: F31.12 Bipolar disorder, current episode manic without psychotic features, moderate (principal); R45.851 Suicidal ideations; F11.20 Opioid dependence, uncomplicated; Z20.822 Contact with and (suspected) exposure to COVID-19; Z79.899 Other long term (current) drug therapy
CPT/HCPCS: 36415; 80053; 80061; 80076; 80307; 80320; 82248; 82607; 82746; 83036; 84439; 84443; 85025; 87635; 93005; 96372; 99222; 99232; 99233; 99239; 99285; J2060

== ENCOUNTER 2020-08-05 19:33 | Emergency (ER) | payer OTHER, SELFPAY ==
[2020-08-05 20:10] VITALS: BP 120/90; PULSE 74; RESP 14; TEMP 36.3; O2SAT 97; BMI 27.3
--- NOTE | 2020-08-05 21:25 | PC.NURSE ---
PT R SIDE LYING IN BED SLEEPING, RR EVEN UNLABORED, SKIN WPD, NAD, SPO2 97% ON RA.
[2020-08-05 21:29] VITALS: PULSE 89; RESP 16; O2SAT 97
--- NOTE | 2020-08-05 21:38 | MHC.RECOVSUP ---
Recovery Support o Current location: 21 o Identified substance use concern: Opioid - Overdose <del>-</del> <del>Withdrawal</del> <del>-</del> <del>Seeking</del> <del>ATS</del> <del>(detox)</del> - Support ? Intervention: <del>o</del> <del>ATS</del> <del>bed</del> <del>search</del> <del>started/completed/in</del> <del>process</del> <del>o</del> <del>MAT</del> <del>started</del> <del>or</del> <del>to</del> <del>be</del> <del>started</del> o Community resources provided <del>o</del> <del>Harm</del> <del>reduction</del> <del>discussion</del> ? Plan: <del>o</del> <del>Referral</del> <del>to</del> <del>[facility]</del> <del>o</del> <del>Bed</del> <del>search</del> <del>in</del> <del>progress</del> <del>to</del> o Follow up tomorrow <del>o</del> <del>Patient</del> <del>awaiting</del> <del>crisis</del> <del>evaluation</del> <del>o</del> <del>Patient</del> <del>to</del> <del>follow</del> <del>up</del> <del>with</del> <del>[facility]</del> <del>after</del> <del>discharge</del> ? Additional information: I was not able to engage in conversation with pt. pt came in due to an overdose and has been sleeping since his arrival. I made several attempts to wake pt but he was not receptive. If pt is still here it would be best to follow up with him in the am
[2020-08-05 22:19] VITALS: BP 100/60; PULSE 81; RESP 16; O2SAT 97
--- NOTE | 2020-08-06 00:15 | ED.OVERDOSE ---
HPI - Overdose General Chief Complaint: Overdose Stated Complaint: od Time Seen by Provider: 08/06/20 00:14 Source: EMS Mode of arrival: EMS Limitations: no limitations History of Present Illness HPI Narrative: History of substance abuse here in the recent past since emergency room was Section 35 to released from facility today states he was on his way to go to another program and sniff 1 bag of heroin. Found by bystanders and in a sitting position appearing under the influence subsequently called EMS and 4 mg of nasal Narcan was administered with good effect. Admits to using heroin. Denies any other illicit drugs, recent fall or injury. Denies any medical problems at this time. complaint: accidental overdose Onset (ago): minute(s) Timing confirmed by: other (Bystanders) Intent: other (Recreation of) How Overdose Was Discovered: called family/friend (Bystanders) Treatments Prior to Arrival: none Related Data Home Medications Medication Instructions Recorded Confirmed lorazepam [Ativan] 1 mg PO DAILY PRN 08/06/20 08/06/20 quetiapine 100 mg PO DAILY 08/06/20 08/06/20 quetiapine 200 mg PO BEDTIME 08/06/20 08/06/20 trazodone 200 mg PO BEDTIME 08/06/20 08/06/20 Previous Rx's Medication Instructions Recorded divalproex 1,000 mg PO BEDTIME 30 Days #60 tab 06/09/20 divalproex 500 mg PO DAILY 30 Days #30 tab 06/09/20 multivitamin with folic acid 1 tab PO DAILY 30 Days #30 tab 06/09/20 [Tab-A-Wagner] nicotine 21 mg TRANSDERMAL DAILY 30 Days 06/09/20 #30 ea Allergies Allergy/AdvReac Type Severity Reaction Status Date / Time No Known Allergies Allergy Unverified 02/03/20 16:30 [No Known Allergies*] Review of Systems Review of Systems: Constitutional: No Weight loss, No Fever, No Chills, No Night Sweats, No Fatigue, No Malaise ENT/Mouth: No Hearing loss, No Ear Pain, No Nasal Congestion, No Sinus Pain, No Hoarseness, No sore throat, No Rhinorrhea, No Swallowing Difficulty Eyes: No Eye Pain, No Swelling, No Redness, No Foreign Body, No Discharge, No Vision Changes Cardiovascular: No Chest Pain, No SOB, No Dyspnea on Exertion, No Orthopnea, No Edema, No Palpitations Respiratory: No Cough, No Sputum, No Wheezing, No Smoke Exposure, No Dyspnea Gastrointestinal: No Nausea, No Vomiting, No Diarrhea, No Constipation, No abdominal Pain, No Hematochezia, No Melena Genitourinary: No Dysuria, No Urinary Frequency, No Hematuria, No Urinary Incontinence, No Urgency, No Flank Pain, No Urinary Flow Changes, No Hesitancy Musculoskeletal: No joint pain, No Myalgias, No Joint Swelling Skin: No Skin Lesions, No rash Neuro: No Weakness, No Numbness, No Paresthesias, No Loss of Consciousness, No Dizziness, No Headache Psych: No Anxiety/Panic, No Depression, No SI/HI/AH/VH, No Social Issues Heme/Lymph: No Bruising, No Bleeding,No Lymphadenopathy Endocrine: No Polyuria, No Polydipsia, No Temperature Intolerance Yes all other systems are reviewed and are negative [facility] Past Medical History Medical History ADHD Anxiety Surgical History No history of previous surgery Social History Social History Household Members: Family Housing: House Alcohol intake: unknown Smoking Status: Current every day smoker Tobacco Type: Cigarette Smoked in Last 30 Days: Yes Second Hand Smoke Exposure: No Use of substances other than those prescribed or required for medical reasons: Yes Substance Use Type: Heroin Substance Use Frequency: Chronic Longstanding Last Used Substance: Hours (ago) Any prior treatment program specific to substance use: Yes Advance Directives: No Advance Directives Information Provided: No service: No Sexual orientation: Straight/Heterosexual Physical Exam Vital Signs: Vital Signs: Last Vital Signs Temp 97.4 F 08/05/20 20:10 Pulse 81 08/05/20 22:19 Resp 16 08/05/20 22:19 BP 100/60 08/05/20 22:19 Pulse Ox 97 08/05/20 22:19 Body Mass Index 27.3 Reviewed Const: General: cooperative and intoxicated appearing (Appears slightly drowsy); No acute distress Nutritional Appearance: average body habitus Orientation/consciousness: patient oriented x3 HENMT: Head: Yes normal to inspection Ears: hearing grossly normal bilaterally Eyes: General: appearance normal, both eyes and all related structures Visual Alves: normal visual alves by confrontation Neck: Neck: Yes normal visual inspection, No positive Brudzinski's sign, No positive Kernig's sign and No tender Thyroid: Thyroid normal Chest: Chest palpation & inspection: normal inspection of the chest Resp: Effort & Inspection: normal respiratory effort Auscultation: clear to auscultation bilaterally Cardio: Jugular venous distension: no JVD Rhythm: regular rhythm Heart sounds: S1 normal heart sound present and S2 normal heart sound present GI: Inspection: Yes normal to inspection Percussion: Yes normal to percussion Auscultation: normal bowel sounds : General: Yes no CVA tenderness Back/Spine/Pelvis: Back: no CVA tenderness Skin: General skin exam: no rashes or lesions noted Neuro: General: patient oriented x3 Extrem: General: Yes normal to inspection Course Course Course Narrative: Admits to snorting 1 bag of heroin for recreational purposes requiring EMS evaluation and subsequent Narcan 4 mg nasal. Offers no complaints upon arrival slightly drowsy. Will monitor and treat with additional reversal if needed. Will offer detox services. Offers no other medical complaints at this time. Reevaluation(s) Reevaluation #1: Has been resting comfortably better bed to go to bathroom offers no complaints. Eating drinking. Requesting discharge. For declined to speak to substance abuse counselor did decline to go to detox. Upset that had to be brought here for this. He denies any SI or HI. Will follow up closely with his primary care doctor states he has resources and is on his way to go to a substance abuse counseling center Discharge Plan Discharge Clinical Impression: Opioid use disorder, Opiate overdose Patient Disposition: Home, Self-Care Instructions: Narcotic Use Disorder (ED) Additional Instructions: Please stop doing drugs and seek detox Go directly to detox Thank you Prescriptions: No Action divalproex 500 mg Tablet,Delayed Release (Dr/Ec) 1,000 mg PO BEDTIME 30 Days Qty: 60 RF: 0 divalproex 500 mg Tablet,Delayed Release (Dr/Ec) 500 mg PO DAILY 30 Days Qty: 30 RF: 0 nicotine 21 mg/24 hr Patch 24 Hour 21 mg transdermal DAILY 30 Days Qty: 30 RF: 0 multivitamin with folic acid [Tab-A-Wagner] 400 mcg Tablet 1 tab PO DAILY 30 Days Qty: 30 RF: 0 trazodone 100 mg tablet 200 mg PO BEDTIME RF: 0 quetiapine 200 mg Tablet 200 mg PO BEDTIME RF: 0 quetiapine 100 mg Tablet 100 mg PO DAILY RF: 0 lorazepam [Ativan] 1 mg Tablet 1 mg PO DAILY PRN (Reason: Anxiety) RF: 0 Referrals: Physician,Unknown [Primary Care Provider] - 2 days Interventions: ED Discharge Assessment Last Done: 08/06/20 00:22 Discharge Date/Time: 08/06/20 00:23
== END 2020-08-06 00:23 | disposition home or self-care (01) ==
PROVIDERS: Emergency Provider Internal Medicine
DX: T40.1X1A Poisoning by heroin, accidental (unintentional), initial encounter (principal); R40.0 Somnolence; Y92.480 Sidewalk as the place of occurrence of the external cause; F11.10 Opioid abuse, uncomplicated; F17.210 Nicotine dependence, cigarettes, uncomplicated
CPT/HCPCS: 99284; 99285

== ENCOUNTER 2020-08-06 06:01 | Emergency (ER) | payer OTHER, SELFPAY ==
[2020-08-06 06:07] VITALS: BP 131/79; PULSE 84; RESP 19; TEMP 36; O2SAT 98; BMI 28.3
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
--- NOTE | 2020-08-06 07:19 | ED_ITS ---
HPI - Psych General Chief Complaint: Psychiatric Symptoms Stated Complaint: crisis Time Seen by Provider: 08/06/20 07:00 Source: patient and EMS Mode of arrival: EMS Limitations: no limitations History of Present Illness HPI Narrative: 34 years old male with psych history of bipolar, patient also has a history of polysubstance abuse, patient had multiple ED visit for heroin overdose requiring Narcan. Patient stated that he lost all his psych medication and has no access to it, and patient reportedly if he does not take his psych medicine he become psychotic. Patient stated if he does not take his medication he will become suicidal to currently patient has no plan for suicide, no hallucination or hearing voices. Patient last time took his psych medication was last night. Related Data Home Medications Medication Instructions Recorded Confirmed lorazepam [Ativan] 1 mg PO DAILY PRN 08/06/20 08/06/20 quetiapine 100 mg PO DAILY 08/06/20 08/06/20 quetiapine 200 mg PO BEDTIME 08/06/20 08/06/20 trazodone 200 mg PO BEDTIME 08/06/20 08/06/20 Previous Rx's Medication Instructions Recorded divalproex 1,000 mg PO BEDTIME 30 Days #60 tab 06/09/20 divalproex 500 mg PO DAILY 30 Days #30 tab 06/09/20 multivitamin with folic acid 1 tab PO DAILY 30 Days #30 tab 06/09/20 [Tab-A-Wagner] nicotine 21 mg TRANSDERMAL DAILY 30 Days 06/09/20 #30 ea Allergies Allergy/AdvReac Type Severity Reaction Status Date / Time No Known Allergies Allergy Unverified 02/03/20 16:30 [No Known Allergies*] Review of Systems Review of Systems: All other systems are reviewed and are negative Constitutional: Reports as per HPI and Reports no additional constitutional complaints Eyes: Reports as per HPI and Reports no additional eye complaints Reports system reviewed and no additional complaints, except as documented Cardiovascular: Reports as per HPI and Reports no additional cardiovascular complaints Respiratory: Reports as per HPI and Reports no additional respiratory complaints Gastrointestinal: Reports as per HPI and Reports no additional gastrointestinal complaints Genitourinary: Reports no additional female genitourinary complaints Musculoskeletal: Reports no additional musculoskeletal complaints Skin/Breast: Reports system reviewed and no additional complaints, except as docu Psychiatric: Reports no additional psychiatric complaints Endocrine: Reports no additional endocrine complaints Hematologic/Lymphatic: Reports no additional hematologic/lymphatic complaints Allergic/Immunologic: Reports no additional allergic/immunologic complaints Reports system reviewed and no additional complaints, except as documented and Reports Abnormal speech present [facility] Past Medical History Medical History ADHD Anxiety Surgical History No history of previous surgery Social History Social History Household Members: Family Housing: House Alcohol intake: unknown Smoking Status: Current every day smoker Tobacco Type: Cigarette Smoked in Last 30 Days: Yes Second Hand Smoke Exposure: No Use of substances other than those prescribed or required for medical reasons: Yes Substance Use Type: Heroin Substance Use Frequency: Chronic Longstanding Last Used Substance: Hours (ago) Any prior treatment program specific to substance use: Yes Advance Directives: No Advance Directives Information Provided: No service: No Sexual orientation: Straight/Heterosexual Physical Exam Vital Signs: Vital Signs: Last Vital Signs Temp 96.8 F 08/06/20 06:07 Pulse 84 08/06/20 06:07 Resp 19 08/06/20 06:07 BP 131/79 08/06/20 06:07 Pulse Ox 98 08/06/20 06:07 Body Mass Index 28.3 Vital signs have been reviewed as appeared to be correct. Blood pressure normal. Heart rate normal. Respiration rate normal. Temperature normal. Oxygen saturation normal. Appearance: Alert. Oriented X3. No acute distress. Head: Normal external exam. Normocephalic. Atraumatic. No Real signs noted. No raccoon eyes noted Eyes: PERRLA. EOMI. Conjunctiva and sclera normal. Eyelids normal. ENT: TM's Normal. Pharynx normal. Uvula midline. Moist mucous membranes. No trismus noted. No drooling noted. No muffled voice noted. Neck: Normal inspection. Neck supple. FROM. No adenopathy. Thyroid Normal. No meningeal signs. No neck mass noted. CVS: Normal heart rate and rhythm. Heart sound normal. No murmurs noted. Pulses normal throughout. Respiratory: No respiratory distress. Painless inspiration. Breath sounds normal. No wheezes/rales/rhonchi noted. Chest nontender. No accessory muscle usage noted or decreased air movement noted. Abdomen: Soft and nontender. Bowel sounds normal in all 4 quadrants. No distention noted. No organomegaly noted. No visible injury noted. Back: No CVA tenderness. Full range of motion noted. Skin: Skin warm and dry. Normal skin color. Normal skin turgor. No rashes/lesions/lacerations noted. Extremities: No lower extremity edema. Extremities exhibit normal range of motion. Extremities nontender. Neuro: Oriented X 3. No motor deficit. No sensory deficit. Reflexes normal. Patient Appearance: Appropriate Patient Orientation: Person, Place, Time and Situation Level of Consciousness: Awake, Appropriate and Alert Patient Behavior: Talkative, Cooperative. Mood Description: Depressed Affect Description: Flat Patient Cognition Impaired: No Ability to Follow Directions: Good Speech Pattern: Spontaneous Speech Memory Description: Intact Hallucinations: Not present Delusions: Not Present Thought Process: Illogical Thought Content: Appropriate Depressive Symptoms: None Judgement: Fair Course Course Course Narrative: Physician observation started at 7:30 . Patient placed in physician observation because the patient needed more time to see [facility] for evaluation patient's vital sign were stable, patient is alert and oriented , neuro exam unchanged, unremarkable rest of physical exam. Discharge Plan Discharge Clinical Impression: Bipolar 1 disorder with moderate raj, Polysubstance (including opioids) dependence with physiological dependence Prescriptions: No Action divalproex 500 mg Tablet,Delayed Release (Dr/Ec) 1,000 mg PO BEDTIME 30 Days Qty: 60 RF: 0 divalproex 500 mg Tablet,Delayed Release (Dr/Ec) 500 mg PO DAILY 30 Days Qty: 30 RF: 0 nicotine 21 mg/24 hr Patch 24 Hour 21 mg transdermal DAILY 30 Days Qty: 30 RF: 0 multivitamin with folic acid [Tab-A-Wagner] 400 mcg Tablet 1 tab PO DAILY 30 Days Qty: 30 RF: 0 trazodone 100 mg tablet 200 mg PO BEDTIME RF: 0 quetiapine 200 mg Tablet 200 mg PO BEDTIME RF: 0 quetiapine 100 mg Tablet 100 mg PO DAILY RF: 0 lorazepam [Ativan] 1 mg Tablet 1 mg PO DAILY PRN (Reason: Anxiety) RF: 0
--- NOTE | 2020-08-06 07:29 | PC.NURSE ---
Report recieved. PT currently resting. PT waiting to be seen by N.
[2020-08-06 07:45] LABS: Amphetamine Screen Urine Not Detected (Not Detect); Barbiturates, Urine Not Detected (Not Detect); Benzodiazepines Screen Urine POSITIVE (Not Detect); Cannabinoid Screen Urine Not Detected (Not Detect); Cocaine Screen Urine POSITIVE (Not Detect); Opiate Screen Urine POSITIVE (Not Detect); Phencyclidine Screen Urine Not Detected (Not Detect)
--- NOTE | 2020-08-06 09:11 | PC.NURSE ---
[facility] at bedside for eval
--- NOTE | 2020-08-06 09:34 | PC.NURSE ---
Per N pt is EATS bedsearch
[2020-08-06 09:41] VITALS: BP 125/62; PULSE 69; RESP 18; TEMP 37.1; O2SAT 99
[2020-08-06] MEDS: Divalproex Sodium 500 MG TABLET.DR PO (13:53)
[2020-08-06] MEDS: QUEtiapine Fumarate 100 MG TABLET PO (13:53)
[2020-08-06] MEDS: Multivitamin TABLET 1 TAB PO (13:53)
[2020-08-06 14:20] LABS: COVID-19 Test Negative (Negative); IDNOW Serial# 9DD0AD1C
[2020-08-06 17:46] VITALS: BP 98/57; PULSE 70; RESP 12; TEMP 36.7; O2SAT 96
--- NOTE | 2020-08-06 19:14 | PC.NURSE ---
Report received. PT is sleeping in bed. Respirations even and unlabored. PT is EATS bed search.
[2020-08-06] MEDS: Divalproex Sodium 500 MG TABLET.DR 1000 MG PO (20:48)
[2020-08-06] MEDS: traZODone HCL 100 MG TABLET 200 MG PO (20:49)
[2020-08-06] MEDS: QUEtiapine Fumarate 200 MG TABLET PO (20:49)
[2020-08-06] MEDS: LORazepam 1 MG TABLET PO (20:52)
[2020-08-07 08:32] VITALS: BP 111/71; PULSE 68; RESP 15; TEMP 36.7; O2SAT 96
[2020-08-07] MEDS: Divalproex Sodium 500 MG TABLET.DR PO (08:39)
[2020-08-07] MEDS: Multivitamin TABLET 1 TAB PO (08:39)
[2020-08-07] MEDS: QUEtiapine Fumarate 100 MG TABLET PO (08:39)
--- NOTE | 2020-08-07 09:07 | PC.NURSE ---
Pt resting, resp unlabored.
[2020-08-07 10:00] VITALS: RESP 20
[2020-08-07 12:00] VITALS: RESP 20
[2020-08-07 14:00] VITALS: RESP 20
--- NOTE | 2020-08-07 14:21 | PC.NURSE ---
[facility] in to evaluate pt.
--- NOTE | 2020-08-07 15:30 | PC.NURSE ---
Pt resting, resp unlabored.
[2020-08-07 17:20] VITALS: BP 128/77; PULSE 62; RESP 20; TEMP 36.7; O2SAT 100
[2020-08-07] MEDS: LORazepam 1 MG TABLET PO (17:22)
--- NOTE | 2020-08-07 17:35 | PC.NURSE ---
Pt reporting some anxiety, requesting Ativan- given PRN as requested- no other concern or symptoms reported. Pt w/ multiple questions re: meds on discharge, would like to move to [place] after discharge from [facility]. Pt encouraged to share questions re: prescriptions and insurance w/ clinicians at [facility] and [facility] once admitted.
--- NOTE | 2020-08-07 17:53 | PC.NURSE ---
Received call from N: Plan to d/c to respitre tomorrow, pt making calls needed to night to set up for discharge tomorrow.
[2020-08-07 18:00] VITALS: RESP 20
--- NOTE | 2020-08-07 18:38 | PC.NURSE ---
project coach w/ pt.
--- NOTE | 2020-08-07 19:05 | MHC.RECOVSUP ---
Recovery support o Current location: [facility] o Identified substance use concern:Opioid - Overdose (pt was here yesterday due to an overdose) - <del>Withdrawal</del> - <del>Seeking</del> <del>ATS</del> <del>(detox)</del> - Support ? Intervention: <del>o</del> <del>ATS</del> <del>bed</del> <del>search</del> <del>started/completed/in</del> <del>process</del> <del>o</del> <del>MAT</del> <del>started</del> <del>or</del> <del>to</del> <del>be</del> <del>started</del> o Community resources provided o Harm reduction discussion ? Plan: o Referral to [facility] o Bed search in progress to (pt will be d/c tomorrow to respite) <del>o</del> <del>Follow</del> <del>up</del> <del>tomorrow</del> o Patient awaiting crisis evaluation (Evaluation completed by [facility]) o Patient to follow up with [facility] after discharge ? Additional information: pt was here yesterday due to an opioid overdose. prior to that overdose that brought him to the ED, pt stated that he had a separate overdose the same day but was administered NARCAN by his friend. Pt stated that he is not on MAT and has never been on MAT. pt also stated that he does not have a history of mental health. I was able to give him recovery resources and discussed [facility] treatment which he was very excited about.
[2020-08-07] MEDS: diphenhydrAMINE HCL 25 MG TABLET 50 MG PO (20:00)
[2020-08-07] MEDS: Divalproex Sodium 500 MG TABLET.DR 1000 MG PO (20:01)
[2020-08-07] MEDS: traZODone HCL 100 MG TABLET 200 MG PO (20:02)
[2020-08-07] MEDS: QUEtiapine Fumarate 200 MG TABLET PO (20:02)
--- NOTE | 2020-08-07 20:30 | PC.NURSE ---
Patient calm and cooperative, compliant with HS PO medication, no distress observed/reported, will continue to monitor.
[2020-08-07] MEDS: Ibuprofen 800 MG TABLET PO (22:35)
[2020-08-08] MEDS: Melatonin 3 MG TABLET 6 MG PO (00:14)
[2020-08-08 01:52] VITALS: BP 136/87; PULSE 87; RESP 16; TEMP 36.6; O2SAT 98
[2020-08-08] MEDS: LORazepam 1 MG TABLET 2 MG PO (01:54)
--- NOTE | 2020-08-08 02:10 | PC.NURSE ---
Patient seems anxious, reported withdrawing from opiates, cow assessed was 11, provider notified/ordered Ativan 2 mg/administered, pending effect, will continue to monitor.
--- NOTE | 2020-08-08 07:28 | PC.NURSE ---
Report received from GUTIERREZ Hagan. Pt resting, resp unlabored.
[2020-08-08] MEDS: Divalproex Sodium 500 MG TABLET.DR PO (08:41)
[2020-08-08] MEDS: QUEtiapine Fumarate 100 MG TABLET PO (08:41)
[2020-08-08] MEDS: Multivitamin TABLET 1 TAB PO (08:41)
[2020-08-08 08:44] VITALS: BP 153/87; PULSE 85; RESP 17; TEMP 36.4; O2SAT 100
--- NOTE | 2020-08-08 09:33 | PC.NURSE ---
Pt awake, alert. Requesting to leave now. [facility] called- state that he will require re-evaluation before being sent to respite, and that no clinician is available until later in the afternoon (per Betty at [facility]). Pt notified- states he would like to be discharged now, states that he would like to try to get into a sober house. A Daquanler notified.
--- NOTE | 2020-08-08 09:49 | PC.NURSE ---
athletic coach in to speak with pt as requested by pt - pt stated that he no longer is interested in respite as an option.. Pt continues to deny SI, states he is ready and safe to be discharged. Karin colon.
--- NOTE | 2020-08-08 09:57 | MHC.RECOVSUP ---
? Reason for consult:Continuity of care o Current location: [facility] o Identified substance use concern: Heroin - Overdose - Withdrawal - Support ? Intervention: o Community resources provided o Harm reduction discussion ? Plan: o Referral to [facility] o Patient awaiting crisis evaluation o Patient to follow up with [facility] after discharge ? Additional information: pt.is demanding to be discharged. Discussed harm reduction with him and handed him a referral to the [facility].
[2020-08-08 10:00] VITALS: RESP 20
--- NOTE | 2020-08-08 11:03 | PC.NURSE ---
Pt resting, resp unlabored.
[2020-08-08 13:35] VITALS: BP 139/91; PULSE 90; RESP 18; TEMP 36.4; O2SAT 99
--- NOTE | 2020-08-08 13:56 | PC.NURSE ---
Pt awake, demanding to leave, agitated. Karin Torres aware.
[2020-08-08 14:00] VITALS: RESP 20
--- NOTE | 2020-08-08 14:02 | PC.NURSE ---
Pt given discharge instructions. Verbalized understanding of instructions, states he is safe to be discharged.
--- NOTE | 2020-08-08 14:15 | PC.NURSE ---
Pt given discharge instructions, verbalized understanding. Pt states he has a place to stay, and his mother has picked up his medications, and he needs to go now. Pt discharged as ordered.
== END 2020-08-08 14:24 | disposition home or self-care (01) ==
PROVIDERS: Physician Assistant; Emergency Provider Emergency Medicine; PCP Internal Medicine
DX: F32.1 Major depressive disorder, single episode, moderate (principal); F11.20 Opioid dependence, uncomplicated; F19.10 Other psychoactive substance abuse, uncomplicated; F41.9 Anxiety disorder, unspecified; F17.210 Nicotine dependence, cigarettes, uncomplicated; Z79.899 Other long term (current) drug therapy
CPT/HCPCS: 36415; 80307; 87635; 99285; Q0163

== ENCOUNTER 2021-06-06 13:25 | Emergency (ER) | payer OTHER, SELFPAY ==
--- NOTE | 2021-06-06 13:50 | ED.OVERDOSE ---
HPI - Overdose General Chief Complaint: Overdose Stated Complaint: overdose Time Seen by Provider: 06/06/21 13:50 Source: patient Mode of arrival: EMS Limitations: no limitations History of Present Illness HPI Narrative: patient was brought here by ambulance after an heroin overdose he was given Narcan in the field he is now awake and alert he denies SI HI he does not want detox complaint: accidental overdose Onset (ago): minute(s) (10) Intent: other (recreational) Context: Intentional Overdose: other (opioid abuse) Context: Accidental Overdose: wanted to get high Treatments Prior to Arrival: narcan Related Data Previous Rx's Medication Instructions Recorded divalproex 500 mg tablet,delayed 500 mg PO BID 30 Days #60 tab 05/24/21 release melatonin 3 mg tablet 3 - 6 mg PO BEDTIME 90 Days #1 tab 05/24/21 multivitamin with folic acid 400 1 tab PO DAILY 30 Days #30 tab 05/24/21 mcg tablet (Tab-A-Wagner) nicotine (polacrilex) 4 mg gum 4 mg PO Q2-4H #110 ea 05/24/21 quetiapine 100 mg tablet 100 mg PO DAILY #30 tab 05/24/21 quetiapine 200 mg tablet 200 mg PO BEDTIME #30 tab 05/24/21 trazodone 100 mg tablet 200 mg PO BEDTIME #30 tab 05/24/21 hydroxyzine HCl 25 mg tablet 25 mg PO Q8H PRN #30 tab 05/25/21 Allergies Allergy/AdvReac Type Severity Reaction Status Date / Time No Known Allergies Allergy Unverified 05/24/21 15:20 [No Known Allergies*] Review of Systems Review of Systems: Yes all other systems are reviewed and are negative ENT: Reports system reviewed and no additional complaints, except as documented Cardiovascular: Cardiovascular: Reports no additional cardiovascular complaints Respiratory: Respiratory: Reports no additional respiratory complaints Genitourinary: Genitourinary: Reports no additional male genitourinary complaints Neurologic: Reports system reviewed and no additional complaints, except as documented PMFSH Past Medical History Medical History ADHD Anxiety Surgical History No history of previous surgery Family History Family History Mother Thyroid disease Skin cancer Depression Anxiety Father Diabetes Depression Anxiety Skin cancer Other Mental health disorder Substance use disorder Social History Social History Household Members: Family Housing: House Do you presently have visiting nurse or other home services: No Alcohol intake: unknown Patient Tobacco Use Status: Former Tobacco user (4 weeks) Second Hand Smoke Exposure: No Substance Use Type: Heroin service: No Current occupational status: unemployed Sexual orientation: Straight/Heterosexual Cognitive needs: No Hearing needs: No Vision needs: No Physical Exam Vital Signs: Vital Signs: Last Vital Signs Temp 99 F 06/06/21 13:58 Pulse 95 06/06/21 13:58 Resp 16 06/06/21 13:58 BP 142/76 H 06/06/21 13:58 Pulse Ox 96 06/06/21 13:58 BMI result Body Mass Index 28.0 HENMT: Head: Yes normal to inspection General nose exam: Normal external nose present Face and sinus: Yes normal facial exam Mouth: Normal oral and palatal mucosa present Throat: Yes posterior oropharynx normal Neck: Neck: Yes normal visual inspection Chest: Chest palpation & inspection: normal inspection of the chest Resp: Effort & Inspection: normal respiratory effort Auscultation: clear to auscultation bilaterally Cardio: Jugular venous distension: no JVD Rate: regular rate Rhythm: regular rhythm GI: Inspection: Yes normal to inspection Palpation (GI): Soft to palpation, not firm, nontender and no guarding Skin: General skin exam: no rashes or lesions noted Course Course Course Narrative: this is a 35 years old the presented there with the heroin overdose he is now awake and alert, he does not want detox is no SI and no HI ;will have the field hockey coach told to the patient Reevaluation(s) Reevaluation #1: seen by swimming coach or instructor appropriate follow up info given,OK to d/c home Discharge Plan Discharge Clinical Impression: Opioid overdose Patient Disposition: Home, Self-Care Prescriptions: No Action melatonin 3 mg tablet 3 - 6 mg PO BEDTIME 90 Days Qty: 1 RF: 0 trazodone 100 mg tablet 200 mg PO BEDTIME Qty: 30 RF: 1 multivitamin with folic acid [Tab-A-Wagner] 400 mcg tablet 1 tab PO DAILY 30 Days Qty: 30 RF: 1 nicotine (polacrilex) 4 mg gum 4 mg PO Q2-4H Qty: 110 RF: 0 quetiapine 100 mg tablet 100 mg PO DAILY Qty: 30 RF: 1 quetiapine 200 mg tablet 200 mg PO BEDTIME Qty: 30 RF: 1 divalproex 500 mg tablet,delayed release (DR/EC) 500 mg PO BID 30 Days Qty: 60 RF: 1 hydroxyzine HCl 25 mg tablet 25 mg PO Q8H PRN (Reason: itching) Qty: 30 RF: 1
[2021-06-06 13:58] VITALS: BP 142/76; BP 170/87; PULSE 120; PULSE 95; RESP 16; TEMP 37.2; O2SAT 96; BMI 28.0
--- NOTE | 2021-06-06 14:02 | MHC.RECOVSUP ---
? Reason for consult:Recovery Support o Current location:[address] [place] [address] o Identified substance use concernHeroin: - Overdose - Withdrawal - Support ? Intervention: o Community resources provided o Harm reduction discussion ? Plan: o Referral to [facility] o Patient awaiting crisis evaluation o Patient to follow up with [facility] after discharge ? Additional information: Patient overdosed. Patient narcanned and feeling fine. Patient wants a Embroidery Assistant, referred him to [facility]. Talked MAT with him and referred him to [facility] and the [facility]
== END 2021-06-06 14:27 | disposition home or self-care (01) ==
LOC: HO.ED 14:24
PROVIDERS: Emergency Provider Emergency Medicine
DX: T40.1X1A Poisoning by heroin, accidental (unintentional), initial encounter (principal); Z87.891 Personal history of nicotine dependence; Z79.899 Other long term (current) drug therapy; Z71.51 Drug abuse counseling and surveillance of drug abuser
CPT/HCPCS: 99282; 99283

== ENCOUNTER 2021-06-06 21:31 | Inpatient (IN) | payer OTHER, SELFPAY ==
[2021-06-06 21:57] VITALS: PULSE 110; RESP 18; TEMP 36.7; O2SAT 97; BMI 31.9
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
[2021-06-06 23:10] LABS: COVID-19 Test Negative (Negative); IDNOW Serial# 55D5AD1C
[2021-06-06 23:59] LABS: Amphetamine Screen Urine Not Detected (Not Detect); Barbiturates, Urine Not Detected (Not Detect); Benzodiazepines Screen Urine Not Detected (Not Detect); Cannabinoid Screen Urine Not Detected (Not Detect); Cocaine Screen Urine Not Detected (Not Detect); Fentanyl, urine POSITIVE (Not Detect); Opiate Screen Urine Not Detected (Not Detect); Phencyclidine Screen Urine Not Detected (Not Detect)
--- NOTE | 2021-06-07 | ECG_ITS ---
Test Reason : M5 CLEARANCE Blood Pressure : / mmHG Vent. Rate : 067 BPM Atrial Rate : 067 BPM P-R Int : 146 ms QRS Dur : 100 ms QT Int : 388 ms P-R-T Axes : 014 -15 -12 degrees QTc Int : 409 ms Normal sinus rhythm Minimal voltage criteria for LVH, may be normal variant ( R in aVL ) Borderline ECG When compared with ECG of 31-MAY-2020 15:54, No significant change was found Referred By: Jes Bajwa Electronically Signed By:Artur Solares
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
[2021-06-07 00:47] VITALS: BP 136/76; PULSE 91; RESP 16; TEMP 37.1; O2SAT 93
--- NOTE | 2021-06-07 04:32 | PC.NURSE ---
smart sheet sent and received and confirmed.
[2021-06-07 08:00] VITALS: RESP 16
--- NOTE | 2021-06-07 10:19 | PC.NURSE ---
bhn at bedside, pt aware of plan of care.
--- NOTE | 2021-06-07 10:52 | MHC.RECOVSUP ---
? Reason for consult:Recovery Support o Current location:[facility] o Identified substance use concern: Heroin - Overdose - Seeking ATS (detox) - Support ? Intervention: o ATS bed search started/completed/in process o Community resources provided o Harm reduction discussion ? Plan: o Bed search in progress to o Patient awaiting crisis evaluation o Patient to follow up with [facility] after discharge ? Additional information:Pt. seen by N. Patient possibly going to . Referred patient to [facility] for a coach professional athletes.
[2021-06-07 11:11] VITALS: BP 139/79; PULSE 78; TEMP 37.2; O2SAT 97
--- NOTE | 2021-06-07 11:20 | PC.NURSE ---
retail performance coach at bedside, pt aware of plan of care.
[2021-06-07] MEDS: Bacitracin Oint 14 GM TUBE 1 APPL TOPICAL ×2 (11:43→20:33)
--- NOTE | 2021-06-07 11:45 | PHA.MEDREC ---
Pharmacy Consult ? Medication Reconciliation Pharmacy has reviewed the medication reconciliation. Completed by RN. Provider could not continue medications because directon were not confirmed. Called pharmacy to confirm medication on list completed by RN. Elsa Quinones, ShanelD
[2021-06-07] MEDS: Divalproex Sodium 500 MG TABLET.DR PO ×2 (12:20→20:34)
[2021-06-07] MEDS: QUEtiapine Fumarate 100 MG TABLET PO (12:20)
[2021-06-07] MEDS: Nicotine Polacrilex 2 MG GUM 4 MG BUCCAL ×5 (12:20→20:34)
[2021-06-07] MEDS: Multivitamin TABLET 1 TAB PO (12:21)
[2021-06-07] MEDS: traZODone HCL 100 MG TABLET 200 MG PO (20:34)
[2021-06-07] MEDS: QUEtiapine Fumarate 200 MG TABLET PO (20:34)
[2021-06-07] MEDS: Melatonin 3 MG TABLET 6 MG PO (20:34)
--- NOTE | 2021-06-07 21:01 | PC.NURSE ---
Pt alert and oriented x4, calm and cooperative. Pt denies pain. Pt ambulated and steady on his feet. Pt ate dinner and tolerated well. Pt taking medications without difficulty. Nurse to Nurse report given to GUTIERREZ Ann.
[2021-06-07 23:28] VITALS: BP 125/81; PULSE 97; RESP 18; TEMP 36.3; O2SAT 97
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
[2021-06-08 08:23] LABS: Estimated Average Glucose 131 mg/dL; Hemoglobin A1c % 6.2 %
[2021-06-08 08:26] LABS: Cholesterol 148 mg/dL; HDL Cholesterol 44 mg/dL; LDL Cholesterol Calculated 80 mg/dl; Triglycerides 122 mg/dL
[2021-06-08 08:47] LABS: Free T4 (Free Thyroxine) 0.86 ng/dL (0.71-1.85); Thyroid Stimulating Hormone 0.41 uIU/mL (0.32-4.0)
[2021-06-08] MEDS: QUEtiapine Fumarate 100 MG TABLET PO (08:51)
[2021-06-08] MEDS: Nicotine Polacrilex 2 MG GUM 4 MG BUCCAL (08:51)
[2021-06-08] MEDS: Divalproex Sodium 500 MG TABLET.DR PO ×2 (08:51→20:39)
[2021-06-08] MEDS: Multivitamin TABLET 1 TAB PO (08:51)
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
[2021-06-08 10:27] LABS: Folate 18.6 ng/mL (> or = 4.0); Vitamin B12 735 pg/mL (200-900)
[2021-06-08 13:34] LABS: MANUAL DIFF FLAG NO
[2021-06-08 13:44] LABS: Basophils Percent Auto 0.4 % (0-2); Eosinophils Absolute Auto 0.2 X10*3/uL (0.0-0.4); Eosinophils Percent Auto 2.2 % (0-4); Hematocrit 45.3 % (42.0-52.0); Hemoglobin 15.7 g/dl (14.0-18.0); Imm Gran Abs Auto 0.02 X10*3/uL (0.00-0.03); Imm Gran Pct Auto 0.3 % (0.0-0.4); Lymphocytes Absolute Auto 1.9 X10*3/uL (1.2-4.9); Lymphocytes Percent Auto 26.1 % (20-40); Mean Corpuscular HGB Conc 34.7 g/dl (31.0-36.0); Mean Corpuscular Hemoglobin 30.2 pg (27.0-33.0); Mean Corpuscular Volume 87.1 fL (80.0-98.0); Mean Platelet Volume 9.5 fL (9.4-12.4); Monocytes Absolute Auto 0.6 X10*3/uL (0.1-1.2); Monocytes Percent Auto 8.1 % (2-11); Neutrophils Absolute Auto 4.5 x10*3/uL (2.0-8.3); Neutrophils Percent Auto 62.9 % (45-73); Platelet Count 237 X10*3/uL (160-400); Red Cell Distribution Width 12.7 % (11.0-16.0); White Blood Count 7.1 X10*3/uL (4.8-10.8)
[2021-06-08 14:01] LABS: Alanine Aminotransferase 9 U/L (0-40); Albumin Level 4.1 g/dL (3.5-5.0); Alkaline Phosphatase 72 U/L (39-117); Anion Gap 15 (12-20); Aspartate Amino Transferase 14 U/L (5-37); Bilirubin Total 0.2 mg/dL (0.0-1.0); Blood Urea Nitrogen 16 mg/dL (9-16); Calcium 9.9 mg/dL (8.4-10.2); Carbon Dioxide 25 mmol/L (22-29); Chloride 104 mmol/L (96-108); Creatinine Clr Calc Pharmacy 104.8; Estimated Glomerular Filt Rate > 60; Glucose Random 121 mg/dL (60-115); Potassium 4.6 mmol/L (3.3-5.1); Sodium 139 mmol/L (135-145)
[2021-06-08 14:12] VITALS: BP 115/69; PULSE 88; RESP 14; TEMP 36.7; O2SAT 100
--- NOTE | 2021-06-08 16:25 | HO.ADDICTCON ---
History of Present Illness Date of Service: 06/08/21 Chief Complaint: Bipolar Reason for Consult: Opioid use disorder Requesting physician: Elham Joseph Discussed with referring provider: Yes Sources of Information: patient interviewed, chart reviewed and crisis/core team assessment reviewed HPI Narrative: Patient with PMH bipolar, opioid use disorder, cocaine use. Was brought to this facility ED due to accidental overdose on 06/06/2021. He reports that he had been sober since April 03, with no medication assisted therapy. He accomplished this by going to a detox, [facility], [facility]. He has been living in a sober house ([facility]). He reports multiple life stressors recently have occurred, and that he used to bags on the way to the gym, which resulted in accidental overdose on 06/06/2021. He is willing to consider Suboxone, as he thinks he may need Sublocade. Review of home medications shows 3 7 day [employer] of Suboxone 24 mg, dated 01/09/2021 through 01/26/2021. He reports that he received these at a walk-in clinic in [place]. He would like to speak with water reuse program manager of [facility] prior to making any decisions at this time. No objective symptoms of withdrawals observed, and none reported. Past Psychiatric History: Inpatient: pt reports one previous psychiatric admission at age of 13. OP: no current providers Suicide attempts: pt denies. Diagnostics Vital Signs (24Hr): Vital Signs - 24 hr 06/07/21 23:28 06/08/21 14:12 Temperature 97.4 F 98.0 F Pulse Rate 97 88 Respiratory Rate 18 14 Blood Pressure 125/81 115/69 Pulse Oximetry 97 100 BMI result Body Mass Index 31.9 Labs Results: 06/08/21 13:03 06/08/21 13:03 Labs: Laboratory Results - last 48 hr 06/06/21 06/06/21 06/08/21 22:44 23:35 07:46 WBC RBC Hgb Hct MCV MCH MCHC RDW Plt Count MPV Immature Gran % (Auto) Neut % (Auto) Lymph % (Auto) [place] % (Auto) Eos % (Auto) Baso % (Auto) Lymph # (Auto) [place] # (Auto) Eos # (Auto) Baso # (Auto) Abs Immat Gran (auto) Absolute Neuts (auto) Absolute Nucleated RBC Nucleated RBC % (auto) Sodium Potassium Chloride Carbon Dioxide Anion Gap BUN Creatinine Estim Creat Clear Calc Estimated GFR Random Glucose Estimat Average Glucose Hemoglobin A1c % Calcium Magnesium 2.0 Total Bilirubin AST ALT Alkaline Phosphatase Total Protein Albumin Triglycerides 122 Cholesterol 148 LDL Cholesterol, Calc 80 HDL Cholesterol 44 Vitamin B12 Folate TSH 0.41 Free T4 0.86 Urine Opiates Screen Not Detected Urine Fentanyl Screen POSITIVE H Ur Barbiturates Screen Not Detected Ur Phencyclidine Scrn Not Detected Ur Amphetamines Screen Not Detected U Benzodiazepines Scrn Not Detected Urine Cocaine Screen Not Detected U Marijuana (THC) Screen Not Detected COVID-19 ([facility]) Negative COVID-[employer] See Note 06/08/21 06/08/21 06/08/21 07:47 07:51 13:03 WBC 7.1 RBC 5.20 Hgb 15.7 Hct 45.3 MCV 87.1 MCH 30.2 MCHC 34.7 RDW 12.7 Plt Count 237 MPV 9.5 Immature Gran % (Auto) 0.3 Neut % (Auto) 62.9 Lymph % (Auto) 26.1 [place] % (Auto) 8.1 Eos % (Auto) 2.2 Baso % (Auto) 0.4 Lymph # (Auto) 1.9 [place] # (Auto) 0.6 Eos # (Auto) 0.2 Baso # (Auto) 0.0 Abs Immat Gran (auto) 0.02 Absolute Neuts (auto) 4.5 Absolute Nucleated RBC 0.000 Nucleated RBC % (auto) 0.0 Sodium Potassium Chloride Carbon Dioxide Anion Gap BUN Creatinine Estim Creat Clear Calc Estimated GFR Random Glucose Estimat Average Glucose 131 Hemoglobin A1c % 6.2 Calcium Magnesium Total Bilirubin AST ALT Alkaline Phosphatase Total Protein Albumin Triglycerides Cholesterol LDL Cholesterol, Calc HDL Cholesterol Vitamin B12 735 Folate 18.6 TSH Free T4 Urine Opiates Screen Urine Fentanyl Screen Ur Barbiturates Screen Ur Phencyclidine Scrn Ur Amphetamines Screen U Benzodiazepines Scrn Urine Cocaine Screen U Marijuana (THC) Screen COVID-19 ([facility]ESU) COVID-[employer] 06/08/21 13:03 WBC RBC Hgb Hct MCV MCH MCHC RDW Plt Count MPV Immature Gran % (Auto) Neut % (Auto) Lymph % (Auto) [place] % (Auto) Eos % (Auto) Baso % (Auto) Lymph # (Auto) [place] # (Auto) Eos # (Auto) Baso # (Auto) Abs Immat Gran (auto) Absolute Neuts (auto) Absolute Nucleated RBC Nucleated RBC % (auto) Sodium 139 Potassium 4.6 Chloride 104 Carbon Dioxide 25 Anion Gap 15 BUN 16 Creatinine 1.09 Estim Creat Clear Calc 104.8 Estimated GFR > 60 Random Glucose 121 H Estimat Average Glucose Hemoglobin A1c % Calcium 9.9 D Magnesium Total Bilirubin 0.2 AST 14 ALT 9 Alkaline Phosphatase 72 Total Protein 7.0 Albumin 4.1 Triglycerides Cholesterol LDL Cholesterol, Calc HDL Cholesterol Vitamin B12 Folate TSH Free T4 Urine Opiates Screen Urine Fentanyl Screen Ur Barbiturates Screen Ur Phencyclidine Scrn Ur Amphetamines Screen U Benzodiazepines Scrn Urine Cocaine Screen U Marijuana (THC) Screen COVID-19 (JESU) COVID-19 Clin Com Medications Medications Current Medications Acetaminophen (Acetaminophen 325 Mg Tablet) 650 mg PO Q6H PRN PRN Reason: Headache/Pain Mild Scale (1-3) Al Hydroxide/Mg Hydroxide (Magnesium Hydrox/Alum Hydrox 30 Ml Oral.Susp) 30 ml PO Q6H PRN PRN Reason: Heartburn/Nausea Bacitracin (Bacitracin Oint 14 Gm Tube) 1 appl TOPICAL BID [facility]; Protocol Last Admin: 06/08/21 09:15 Dose: Not Given Documented by: Clonidine HCl (Clonidine Hcl 0.1 Mg Tablet) 0.1 mg PO BID PRN; Protocol PRN Reason: hyperarousal Divalproex Sodium (Divalproex Sodium 500 Mg Tablet.Dr) 500 mg PO BID [facility] Last Admin: 06/08/21 08:51 Dose: 500 mg Documented by: Hydroxyzine HCl (Hydroxyzine Hcl 25 Mg Tablet) 25 mg PO Q8H PRN PRN Reason: itching Hydroxyzine HCl (Hydroxyzine Hcl 25 Mg Tablet) 25 mg PO Q6H PRN PRN Reason: Anxiety Magnesium Hydroxide (Milk Of Magnesia 30 Ml Oral.Susp) 30 ml PO DAILY PRN PRN Reason: Constipation Melatonin (Melatonin 3 Mg Tablet) 6 mg PO BEDTIME [facility] Last Admin: 06/07/21 20:34 Dose: 6 mg Documented by: Multivitamins/Vitamin C (Multivitamin Tablet) 1 tab PO DAILY [facility] Last Admin: 06/08/21 08:51 Dose: 1 tab Documented by: Nicotine Polacrilex (Nicotine Polacrilex 2 Mg Gum) 4 mg BUCCAL Q2H PRN PRN Reason: nicotine cravings Quetiapine Fumarate (Quetiapine Fumarate 100 Mg Tablet) 100 mg PO DAILY [facility] Last Admin: 06/08/21 08:51 Dose: 100 mg Documented by: Quetiapine Fumarate (Quetiapine Fumarate 200 Mg Tablet) 200 mg PO BEDTIME [facility] Last Admin: 06/07/21 20:34 Dose: 200 mg Documented by: Trazodone HCl (Trazodone Hcl 100 Mg Tablet) 200 mg PO BEDTIME [facility] Last Admin: 06/07/21 20:34 Dose: 200 mg Documented by: Allergies Allergies Allergy/AdvReac Type Severity Reaction Status Date / Time No Known Allergies Allergy Verified 06/06/21 21:57 [No Known Allergies*] Assessment & Plan Assessment & Plan (1) Opioid use disorder: Status: Acute Code(s): F11.99 - Opioid use, unspecified with unspecified opioid-induced disorder Assessment and Plan: Addiction consult service/recovery team will follow with patient over weekend. (2) Polysubstance (including opioids) dependence with physiological dependence: Status: Acute Code(s): F19.20 - Other psychoactive substance dependence, uncomplicated I spent minutes with the patient and/or on the patient floor today, greater than?50% of which was spent counseling/coordinating care. Patient educated on: diagnosis, medication risk/benefits and substance abuse Informed Consent: [facility] Past Medical History Medical History ADHD Anxiety Family History Family History Mother Thyroid disease Skin cancer Depression Anxiety Father Diabetes Depression Anxiety Skin cancer Other Mental health disorder Substance use disorder Surgical History Surgical History No history of previous surgery Social History Social History Household Members: None Housing: Homeless Do you presently have visiting nurse or other home services: No Alcohol intake: unknown Patient Tobacco Use Status: Current everyday Tobacco user Tobacco use type: Cigarette Smoked in Last 30 Days: Yes Patient Interested in Nicotine Replacement: Yes Patient Given Instructions on How to Stop Smoking: Yes Date Education Initiated: 06/08/21 Second Hand Smoke Exposure: No Use of substances other than those prescribed or required for medical reasons: Yes Substance Use Type: Heroin and Opiates Substance Use Frequency: Chronic Longstanding Currently Displaying Signs/Symptoms of Drug Intoxication Withdrawal: No Any prior treatment program specific to substance use: Yes Advance Directives: No Advance Directives Information Provided: No Do you have thoughts of harming others: None Do you have a plan to hurt others: No Plan Recently lost weight without trying: Unsure How much weight loss: Unsure Nutrition Risks: No Nutritional Risk Poor oral hygiene: No service: No Current occupational status: unemployed Sexual orientation: Straight/Heterosexual Cognitive needs: No Hearing needs: No Vision needs: No
[2021-06-08] MEDS: Venlafaxine HCl ER 37.5 MG CAP.ER.24H PO (17:29)
[2021-06-08] MEDS: QUEtiapine Fumarate 50 MG TABLET PO (17:43)
[2021-06-08] MEDS: hydrOXYzine HCL 25 MG TABLET PO ×2 (17:44→23:23)
[2021-06-08 20:20] VITALS: BP 153/82; PULSE 84; TEMP 36.7
[2021-06-08] MEDS: QUEtiapine Fumarate 300 MG TABLET PO (20:39)
[2021-06-08] MEDS: Melatonin 3 MG TABLET 6 MG PO (20:39)
[2021-06-08] MEDS: traZODone HCL 100 MG TABLET 200 MG PO (20:40)
[2021-06-08] MEDS: cloNIDine HCL 0.1 MG TABLET PO (23:22)
[2021-06-09] MEDS: QUEtiapine Fumarate 50 MG TABLET PO (00:23)
[2021-06-09] MEDS: Acetaminophen 325 MG TABLET 650 MG PO ×2 (00:29→20:38)
[2021-06-09 06:00] VITALS: BP 126/73; PULSE 56; RESP 16; TEMP 36.3; O2SAT 98
[2021-06-09] MEDS: Multivitamin TABLET 1 TAB PO (08:43)
[2021-06-09] MEDS: Venlafaxine HCl ER 37.5 MG CAP.ER.24H PO (08:43)
[2021-06-09] MEDS: QUEtiapine Fumarate 100 MG TABLET PO (08:44)
[2021-06-09] MEDS: Divalproex Sodium 500 MG TABLET.DR PO ×2 (08:44→23:10)
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
[2021-06-09 18:00] VITALS: BP 112/77; PULSE 81; TEMP 36.3
[2021-06-09] MEDS: Melatonin 3 MG TABLET 6 MG PO (23:09)
[2021-06-09] MEDS: traZODone HCL 100 MG TABLET 200 MG PO (23:09)
[2021-06-09] MEDS: QUEtiapine Fumarate 300 MG TABLET PO (23:10)
[2021-06-10 06:00] VITALS: BP 117/64; PULSE 65; RESP 16; TEMP 36.6; O2SAT 96
[2021-06-10] MEDS: Venlafaxine HCl ER 37.5 MG CAP.ER.24H PO (08:56)
[2021-06-10] MEDS: Divalproex Sodium 500 MG TABLET.DR PO ×2 (08:56→23:04)
[2021-06-10] MEDS: QUEtiapine Fumarate 100 MG TABLET PO (08:56)
[2021-06-10] MEDS: Multivitamin TABLET 1 TAB PO (10:44)
[2021-06-10 17:20] VITALS: BP 129/73; PULSE 79; TEMP 35.9
[2021-06-10] MEDS: Ibuprofen 600 MG TABLET PO ×2 (17:22→23:19)
[2021-06-10] MEDS: hydrOXYzine HCL 25 MG TABLET PO (17:23)
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
[2021-06-10] MEDS: traZODone HCL 100 MG TABLET 200 MG PO (23:03)
[2021-06-10] MEDS: QUEtiapine Fumarate 300 MG TABLET PO (23:04)
[2021-06-10] MEDS: Melatonin 3 MG TABLET 6 MG PO (23:05)
[2021-06-11] MEDS: Multivitamin TABLET 1 TAB PO (08:47)
[2021-06-11] MEDS: Divalproex Sodium 500 MG TABLET.DR PO ×2 (08:47→23:25)
[2021-06-11] MEDS: Venlafaxine HCl ER 37.5 MG CAP.ER.24H PO (08:47)
[2021-06-11] MEDS: QUEtiapine Fumarate 100 MG TABLET PO (08:47)
[2021-06-11] MEDS: Ibuprofen 600 MG TABLET PO ×3 (08:57→23:29)
[2021-06-11] MEDS: hydrOXYzine HCL 25 MG TABLET PO ×3 (08:58→23:29)
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
[2021-06-11 17:30] VITALS: BP 128/68; PULSE 82; TEMP 36.4; O2SAT 97
--- NOTE | 2021-06-11 19:58 | MHC.RECOVSUP ---
? Reason for consult:Recovery Support o Current location:M5 o Identified substance use concern:Heroin - Withdrawal - Support ? Intervention: o MAT started or to be started o Community resources provided o Harm reduction discussion ? Plan: o Referral to [facility] o Follow up tomorrow o Patient to follow up with [facility] after discharge ? 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 referred him to [facility] again. Discussed CSS's and Shelter houses he could apply for. Patient depressed and possibly SI.
[2021-06-11] MEDS: Melatonin 3 MG TABLET 6 MG PO (23:24)
[2021-06-11] MEDS: traZODone HCL 100 MG TABLET 200 MG PO (23:25)
[2021-06-11] MEDS: QUEtiapine Fumarate 300 MG TABLET PO (23:26)
[2021-06-11] MEDS: Acetaminophen 325 MG TABLET 650 MG PO (23:29)
[2021-06-12] MEDS: Ibuprofen 600 MG TABLET PO ×3 (10:06→22:36)
[2021-06-12] MEDS: QUEtiapine Fumarate 100 MG TABLET PO (10:07)
[2021-06-12] MEDS: Venlafaxine HCl ER 75 MG CAP.ER.24H PO (10:07)
[2021-06-12] MEDS: Multivitamin TABLET 1 TAB PO (10:07)
[2021-06-12] MEDS: Divalproex Sodium 500 MG TABLET.DR PO ×2 (10:07→22:36)
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
--- NOTE | 2021-06-12 16:23 | MHC.RECOVRN ---
Briefly met with pt to follow up regarding possible MOUD initiation. Pt reports [facility] will not accept him back and therefore pt does not want to initiate. Pt encouraged to inform staff of any changes and that t/w would be happy to meet with pt if decided to initiate MOUD. Pt provided with t/w card if needed.
[2021-06-12] MEDS: hydrOXYzine HCL 25 MG TABLET PO ×2 (16:54→23:02)
[2021-06-12] MEDS: Acetaminophen 325 MG TABLET 650 MG PO ×2 (16:55→22:35)
--- NOTE | 2021-06-12 20:15 | PC.NURSE ---
Pt submitted a 3-Day Notice on Friday06/12/2021 up on Friday06/15/2021.
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
[2021-06-12] MEDS: traZODone HCL 100 MG TABLET 200 MG PO (22:35)
[2021-06-12] MEDS: QUEtiapine Fumarate 300 MG TABLET PO (22:36)
[2021-06-12] MEDS: Melatonin 3 MG TABLET 6 MG PO (22:36)
[2021-06-12] MEDS: QUEtiapine Fumarate 50 MG TABLET PO (23:02)
[2021-06-13] MEDS: Ibuprofen 600 MG TABLET PO ×3 (08:18→21:43)
[2021-06-13] MEDS: Venlafaxine HCl ER 75 MG CAP.ER.24H PO (08:19)
[2021-06-13] MEDS: Multivitamin TABLET 1 TAB PO (08:19)
[2021-06-13] MEDS: QUEtiapine Fumarate 100 MG TABLET PO (08:19)
[2021-06-13] MEDS: Divalproex Sodium 500 MG TABLET.DR PO ×2 (08:19→20:51)
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
[2021-06-13] MEDS: LORazepam 2 MG/ML VIAL IM (15:12)
[2021-06-13] MEDS: Acetaminophen 325 MG TABLET 650 MG PO ×2 (15:17→21:42)
[2021-06-13] MEDS: hydrOXYzine HCL 25 MG TABLET PO ×2 (15:18→21:43)
[2021-06-13] MEDS: QUEtiapine Fumarate 50 MG TABLET PO ×2 (15:19→20:51)
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
[2021-06-13] MEDS: oxyCODONE HCl Immed Release 5 MG TABLET 10 MG PO ×2 (16:53→23:17)
[2021-06-13 20:45] VITALS: BP 158/84; PULSE 86; RESP 18; TEMP 36.2; O2SAT 98
[2021-06-13] MEDS: QUEtiapine Fumarate 300 MG TABLET PO (20:51)
[2021-06-13] MEDS: traZODone HCL 100 MG TABLET 200 MG PO (20:51)
[2021-06-13] MEDS: Melatonin 3 MG TABLET 6 MG PO (20:51)
[2021-06-13] MEDS: cloNIDine HCL 0.1 MG TABLET PO (20:51)
--- NOTE | 2021-06-13 21:10 | PC.NURSE ---
Patient told this investment underwriter that he had not received any relief from the Oxycodone 10 mg given earlier and that he felt that Percocet 15 mg would have helped more. He also said that he needed more Ativan for tonight. Elham Joseph was notified and this investment underwriter received an order for Ativan 1 mg po x one. No further narcotic medications were ordered.
[2021-06-13] MEDS: LORazepam 1 MG TABLET PO (21:43)
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
[2021-06-14] MEDS: Venlafaxine HCl ER 75 MG CAP.ER.24H PO (12:37)
[2021-06-14] MEDS: QUEtiapine Fumarate 100 MG TABLET PO (12:37)
[2021-06-14] MEDS: Multivitamin TABLET 1 TAB PO (12:38)
[2021-06-14] MEDS: Divalproex Sodium 500 MG TABLET.DR PO ×2 (12:38→22:43)
[2021-06-14] MEDS: hydrOXYzine HCL 25 MG TABLET PO (12:42)
[2021-06-14] MEDS: oxyCODONE HCl Immed Release 5 MG TABLET 10 MG PO ×2 (13:24→22:46)
[2021-06-14 14:01] VITALS: BP 123/71; PULSE 74; TEMP 36.3; O2SAT 99
--- NOTE | 2021-06-14 14:33 | P.PNPSI_ITS ---
Subjective Subjective Date of Service: 06/14/21 Reason For Visit: Bipolar Subjective Notes: Conditional Voluntary Interim History: Pt had surgical debrief of 3rd wound on buttocks and left forearm. Pt with pain well controlled after procedure but worried that his pain would not be well managed over weekend. Pt explained on unit may receive some oxycodone in [place] of ibuprofen and tylenol but will not be discharged with opioid pain medication given risk of accidental overdose if he discharges tomorrow. Pt ambivalent about his recovery, wants to go to friends house than return for treatment. Discussed at length harm reduction and need to carry narcan with him, which he agrees. Pt continues to endorse feeling hopeless, depressed, passive SI but no plan or intent. Medication Compliance: Yes Side effects from medications: No Review of Systems Review of Systems Pertinent positives and negatives as stated in HPI 10 point review of systems is otherwise negative. Constitutional: Denies chills, Denies fever(s), Denies headache(s) and Denies poor appetite Eyes: Reports no additional eye complaints Denies dizziness and Denies headache(s) Cardiovascular: Denies chest pain, Denies chest pain at rest, Denies rapid heart rate, Denies palpitations, Denies dyspnea, Denies orthopnea and Denies slow heart rate Respiratory: Denies chest congestion, Denies cough, Denies pain on inspiration, Denies dyspnea and Denies wheezing Gastrointestinal: Denies abdominal pain, Denies bloating, Denies change in stool character, Denies constipation, Denies GI cramping, Denies early satiety, Denies dyspepsia, Denies heartburn, Denies diarrhea, Denies loose stools, Denies nausea, Denies vomiting and Denies hematemesis Musculoskeletal: Reports no additional musculoskeletal complaints, Denies back pain, Denies arthralgias, Denies joint swelling and Denies numbness Skin/Breast: Reports as per HPI, Denies erythema, Denies rash, Reports skin pain, Reports skin ulcer and Reports wounds Denies dizziness, Denies headache(s) and Denies numbness Psychiatric: Reports as per HPI Endocrine: Denies palpitations Hematologic/Lymphatic: Denies easy bleeding, Denies easy bruising and Denies lymphadenopathy Allergic/Immunologic: Denies wheezing Mental Status Exam Mental Status Exam Narrative: Appearance: casually groomed, fair hygiene, forearms with tatooes, burn on left forearm, in NAD Behavior:cooperative psychomotor:no agitation or retardation noted Speech:clear, normal rate/rhythm/volume, spontaneous Thought process:linear Thought content:hopeless, depressed, but wanting to continue substance use Mood: depressed and anxious Affect: sedated after surgical procedure SI:passive HI:none VH/AH:none Delusions:none Insight/judgment:fair x 2. Memory/cog: alert, oriented x 3. Diagnostics Vital Signs (24Hr): Vital Signs - 24 hr 06/14/21 14:01 06/14/21 16:12 06/14/21 18:49 Temperature 97.4 F 97.5 F Pulse Rate 74 81 74 Respiratory Rate 16 15 Blood Pressure 123/71 153/60 H 104/59 L Pulse Oximetry 99 96 06/15/21 05:45 Temperature 97.2 F Pulse Rate 81 Respiratory Rate Blood Pressure 119/72 Pulse Oximetry 96 BMI result Verdana 4 Body Mass Index Verd[place] 4 31.9 [place] 4 Verdana 4 Labs Results: 06/08/21 13:03 06/08/21 13:03 Medications Medications Current Medications Acetaminophen (Acetaminophen 325 Mg Tablet) 650 mg PO Q6H PRN PRN Reason: Headache/Pain Mild Scale (1-3) Last Admin: 06/14/21 21:29 Dose: 650 mg Documented by: Al Hydroxide/Mg Hydroxide (Magnesium Hydrox/Alum Hydrox 30 Ml Oral.Susp) 30 ml PO Q6H PRN PRN Reason: Heartburn/Nausea Bacitracin (Bacitracin Oint 14 Gm Tube) 1 appl TOPICAL BID [facility]; Protocol Last Admin: 06/14/21 21:31 Dose: Not Given Documented by: Clonidine HCl (Clonidine Hcl 0.1 Mg Tablet) 0.1 mg PO BID PRN; Protocol PRN Reason: hyperarousal Last Admin: 06/14/21 16:10 Dose: 0.1 mg Documented by: Divalproex Sodium (Divalproex Sodium 500 Mg Tablet.Dr) 500 mg PO BID [facility] Last Admin: 06/15/21 10:35 Dose: 500 mg Documented by: Hydroxyzine HCl (Hydroxyzine Hcl 25 Mg Tablet) 25 mg PO Q6H PRN PRN Reason: Anxiety Last Admin: 06/14/21 12:42 Dose: 25 mg Documented by: Promethazine HCl 6.25 mg/ (Sodium Chloride) 50.25 mls @ 201 mls/hr IV ONCE PRN PRN Reason: Nausea and Vomiting Ibuprofen (Ibuprofen 800 Mg Tablet) 800 mg PO Q6H PRN PRN Reason: Pain, Moderate (Pain Scale 4-6 Last Admin: 06/14/21 22:44 Dose: 800 mg Documented by: Magnesium Hydroxide (Milk Of Magnesia 30 Ml Oral.Susp) 30 ml PO DAILY PRN PRN Reason: Constipation Melatonin (Melatonin 3 Mg Tablet) 6 mg PO BEDTIME [facility] Last Admin: 06/14/21 22:43 Dose: 6 mg Documented by: Multivitamins/Vitamin C (Multivitamin Tablet) 1 tab PO DAILY [facility] Last Admin: 06/15/21 10:35 Dose: 1 tab Documented by: Naloxone HCl (Naloxone Hcl 0.4 Mg/Ml Vial) 0.2 mg SUBCUT DAILY PRN PRN Reason: opioid overdose Nicotine Polacrilex (Nicotine Polacrilex 2 Mg Gum) 4 mg BUCCAL Q2H PRN PRN Reason: nicotine cravings Ondansetron HCl (Ondansetron Hcl 4 Mg/2 Ml Vial) 4 mg IVPUSH ONCE PRN PRN Reason: Nausea and Vomiting Oxycodone HCl (Oxycodone Hcl Immed Release 5 Mg Tablet) 10 mg PO ONCE PRN PRN Reason: Pain, Mild (Pain Scale 1-3) Quetiapine Fumarate (Quetiapine Fumarate 100 Mg Tablet) 100 mg PO DAILY [facility] Last Admin: 06/15/21 10:35 Dose: 100 mg Documented by: Quetiapine Fumarate (Quetiapine Fumarate 300 Mg Tablet) 300 mg PO BEDTIME [facility] Last Admin: 06/14/21 22:43 Dose: 300 mg Documented by: Quetiapine Fumarate (Quetiapine Fumarate 50 Mg Tablet) 50 mg PO Q6H PRN PRN Reason: anxiety Last Admin: 06/13/21 20:51 Dose: 50 mg Documented by: Silver Sulfadiazine (Silver Sulfadiazine 1 % Cream 20 Gm Tube) 1 appl TOPICAL BID [facility] Last Admin: 06/14/21 22:44 Dose: Not Given Documented by: Trazodone HCl (Trazodone Hcl 100 Mg Tablet) 200 mg PO BEDTIME [facility] Last Admin: 06/14/21 22:42 Dose: 200 mg Documented by: Venlafaxine HCl (Venlafaxine Hcl Er 75 Mg Cap.Er.24h) 75 mg PO DAILY [facility] Last Admin: 06/15/21 10:35 Dose: 75 mg Documented by: Allergies Allergies Allergy/AdvReac Type Severity Reaction Status Date / Time No Known Allergies Allergy Verified 06/14/21 08:58 [No Known Allergies*] Assessment & Plan Assessment & Plan (1) Full thickness burn of left upper extremity: Qualifiers: Encounter type: initial encounter Upper extremity location: forearm Qualified Code(s): T22.312A - Burn of third degree of left forearm, initial encounter Status: Acute Code(s): T22.30XA - Burn of third degree of shoulder and upper limb, except wrist and hand, unspecified site, initial encounter (2) Full thickness burn of buttock: Qualifiers: Encounter type: initial encounter Qualified Code(s): T21.35XA - Burn of third degree of buttock, initial encounter Status: Acute Code(s): T21.35XA - Burn of third degree of buttock, initial encounter Plan 35-year-old male patient presenting with full-thickness mondragon involving the left buttock and left forearm after overdose. Patient is complaining of severe pain associated with these lesions. Patient is found to have a thick eschar which is densely adherent to the underlying subcutaneous tissue. Debridement of this eschar in both the left buttock and left forearm may expedite healing. Mainly concern is the patient's desire to return to the Street for drugs. He will need good wound care following debridement to prevent further infection of his wounds. After discussion of the procedure, risks, and benefits, he consents to debridement of the left buttock and left forearm burn wounds. He will be added onto the operative schedule for tomorrow. I spent minutes with the patient and/or on the patient floor today, greater than?50% of which was spent counseling/coordinating care. Reason for contiued inpatient stay Substantial Risk for: harm to self
[2021-06-14] MEDS: Ibuprofen 800 MG TABLET PO ×2 (16:10→22:44)
[2021-06-14] MEDS: cloNIDine HCL 0.1 MG TABLET PO (16:10)
[2021-06-14 16:12] VITALS: BP 153/60; PULSE 81; RESP 16
[2021-06-14 18:49] VITALS: BP 104/59; PULSE 74; RESP 15; TEMP 36.4; O2SAT 96
[2021-06-14] MEDS: clonazePAM 1 MG TABLET PO (21:29)
[2021-06-14] MEDS: Acetaminophen 325 MG TABLET 650 MG PO (21:29)
[2021-06-14] MEDS: traZODone HCL 100 MG TABLET 200 MG PO (22:42)
[2021-06-14] MEDS: Melatonin 3 MG TABLET 6 MG PO (22:43)
[2021-06-14] MEDS: QUEtiapine Fumarate 300 MG TABLET PO (22:43)
[2021-06-15 05:45] VITALS: BP 119/72; PULSE 81; TEMP 36.2; O2SAT 96
[2021-06-15] MEDS: QUEtiapine Fumarate 100 MG TABLET PO (10:35)
[2021-06-15] MEDS: Venlafaxine HCl ER 75 MG CAP.ER.24H PO (10:35)
[2021-06-15] MEDS: Divalproex Sodium 500 MG TABLET.DR PO ×2 (10:35→23:21)
[2021-06-15] MEDS: Multivitamin TABLET 1 TAB PO (10:35)
--- NOTE | 2021-06-15 11:37 | P.PNPSI_ITS ---
Subjective Subjective Date of Service: 06/15/21 Reason For Visit: Bipolar Subjective Notes: Conditional Voluntary Interim History: Pt retracts 3 day notice. Pt reports pain so far manageable. Pt reports better sleep last night. He worries about relapsing although also expresses feeling hopeless about one day having a stable life. He struggles with seeing bright f uture for himself. Pt reports passive suicidal ideation but denies any plan. He expresses motivation to get into substance use treatment program. Medication Compliance: Yes Side effects from medications: No Attending Groups: No Review of Systems Review of Systems Pertinent positives and negatives as stated in HPI 10 point review of systems is otherwise negative. Constitutional: Denies chills, Denies fever(s), Denies headache(s) and Denies poor appetite Eyes: Reports no additional eye complaints Denies dizziness and Denies headache(s) Cardiovascular: Denies chest pain, Denies chest pain at rest, Denies rapid heart rate, Denies palpitations, Denies dyspnea, Denies orthopnea and Denies slow heart rate Respiratory: Denies chest congestion, Denies cough, Denies pain on inspiration, Denies dyspnea and Denies wheezing Gastrointestinal: Denies abdominal pain, Denies bloating, Denies change in stool character, Denies constipation, Denies GI cramping, Denies early satiety, Denies dyspepsia, Denies heartburn, Denies diarrhea, Denies loose stools, Denies nausea, Denies vomiting and Denies hematemesis Musculoskeletal: Reports no additional musculoskeletal complaints, Denies back pain, Denies arthralgias, Denies joint swelling and Denies numbness Skin/Breast: Reports as per HPI, Denies erythema, Denies rash, Reports skin pain, Reports skin ulcer and Reports wounds Denies dizziness, Denies headache(s) and Denies numbness Psychiatric: Reports as per HPI Endocrine: Denies palpitations Hematologic/Lymphatic: Denies easy bleeding, Denies easy bruising and Denies lymphadenopathy Allergic/Immunologic: Denies wheezing Mental Status Exam Mental Status Exam Narrative: Appearance: casually groomed, fair hygiene, forearms with tatooes, burn on left forearm, in NAD Behavior:cooperative psychomotor:no agitation or retardation noted Speech:clear, normal rate/rhythm/volume, spontaneous Thought process:linear Thought content:hopeless, depressed, but wanting to continue substance use Mood: depressed and anxious Affect: sedated after surgical procedure SI:passive HI:none VH/AH:none Delusions:none Insight/judgment:fair x 2. Memory/cog: alert, oriented x 3. Diagnostics Vital Signs (24Hr): Vital Signs - 24 hr 06/14/21 14:01 06/14/21 16:12 06/14/21 18:49 Temperature 97.4 F 97.5 F Pulse Rate 74 81 74 Respiratory Rate 16 15 Blood Pressure 123/71 153/60 H 104/59 L Pulse Oximetry 99 96 06/15/21 05:45 Temperature 97.2 F Pulse Rate 81 Respiratory Rate Blood Pressure 119/72 Pulse Oximetry 96 BMI result Verdana 4 Body Mass Index Verdana 4 31.9 Verdana 4 Verdana 4 Labs Results: 06/08/21 13:03 06/08/21 13:03 Medications Medications Current Medications Acetaminophen (Acetaminophen 325 Mg Tablet) 650 mg PO Q6H PRN PRN Reason: Headache/Pain Mild Scale (1-3) Last Admin: 06/14/21 21:29 Dose: 650 mg Documented by: Al Hydroxide/Mg Hydroxide (Magnesium Hydrox/Alum Hydrox 30 Ml Oral.Susp) 30 ml PO Q6H PRN PRN Reason: Heartburn/Nausea Bacitracin (Bacitracin Oint 14 Gm Tube) 1 appl TOPICAL BID [facility]; Protocol Last Admin: 06/14/21 21:31 Dose: Not Given Documented by: Clonidine HCl (Clonidine Hcl 0.1 Mg Tablet) 0.1 mg PO BID PRN; Protocol PRN Reason: hyperarousal Last Admin: 06/14/21 16:10 Dose: 0.1 mg Documented by: Divalproex Sodium (Divalproex Sodium 500 Mg Tablet.Dr) 500 mg PO BID [facility] Last Admin: 06/15/21 10:35 Dose: 500 mg Documented by: Hydroxyzine HCl (Hydroxyzine Hcl 25 Mg Tablet) 25 mg PO Q6H PRN PRN Reason: Anxiety Last Admin: 06/14/21 12:42 Dose: 25 mg Documented by: Promethazine HCl 6.25 mg/ (Sodium Chloride) 50.25 mls @ 201 mls/hr IV ONCE PRN PRN Reason: Nausea and Vomiting Ibuprofen (Ibuprofen 800 Mg Tablet) 800 mg PO Q6H PRN PRN Reason: Pain, Moderate (Pain Scale 4-6 Last Admin: 06/14/21 22:44 Dose: 800 mg Documented by: Magnesium Hydroxide (Milk Of Magnesia 30 Ml Oral.Susp) 30 ml PO DAILY PRN PRN Reason: Constipation Melatonin (Melatonin 3 Mg Tablet) 6 mg PO BEDTIME [facility] Last Admin: 06/14/21 22:43 Dose: 6 mg Documented by: Multivitamins/Vitamin C (Multivitamin Tablet) 1 tab PO DAILY [facility] Last Admin: 06/15/21 10:35 Dose: 1 tab Documented by: Naloxone HCl (Naloxone Hcl 0.4 Mg/Ml Vial) 0.2 mg SUBCUT DAILY PRN PRN Reason: opioid overdose Nicotine Polacrilex (Nicotine Polacrilex 2 Mg Gum) 4 mg BUCCAL Q2H PRN PRN Reason: nicotine cravings Ondansetron HCl (Ondansetron Hcl 4 Mg/2 Ml Vial) 4 mg IVPUSH ONCE PRN PRN Reason: Nausea and Vomiting Oxycodone HCl (Oxycodone Hcl Immed Release 5 Mg Tablet) 10 mg PO ONCE PRN PRN Reason: Pain, Mild (Pain Scale 1-3) Quetiapine Fumarate (Quetiapine Fumarate 100 Mg Tablet) 100 mg PO DAILY [facility] Last Admin: 06/15/21 10:35 Dose: 100 mg Documented by: Quetiapine Fumarate (Quetiapine Fumarate 300 Mg Tablet) 300 mg PO BEDTIME [facility] Last Admin: 06/14/21 22:43 Dose: 300 mg Documented by: Quetiapine Fumarate (Quetiapine Fumarate 50 Mg Tablet) 50 mg PO Q6H PRN PRN Reason: anxiety Last Admin: 06/13/21 20:51 Dose: 50 mg Documented by: Silver Sulfadiazine (Silver Sulfadiazine 1 % Cream 20 Gm Tube) 1 appl TOPICAL BID [facility] Last Admin: 06/14/21 22:44 Dose: Not Given Documented by: Trazodone HCl (Trazodone Hcl 100 Mg Tablet) 200 mg PO BEDTIME [facility] Last Admin: 06/14/21 22:42 Dose: 200 mg Documented by: Venlafaxine HCl (Venlafaxine Hcl Er 75 Mg Cap.Er.24h) 75 mg PO DAILY [facility] Last Admin: 06/15/21 10:35 Dose: 75 mg Documented by: Allergies Allergies Allergy/AdvReac Type Severity Reaction Status Date / Time No Known Allergies Allergy Verified 06/14/21 08:58 [No Known Allergies*] Assessment & Plan Assessment & Plan (1) Full thickness burn of left upper extremity: Qualifiers: Encounter type: initial encounter Upper extremity location: forearm Qualified Code(s): T22.312A - Burn of third degree of left forearm, initial encounter Status: Acute Code(s): T22.30XA - Burn of third degree of shoulder and upper limb, except wrist and hand, unspecified site, initial encounter (2) Full thickness burn of buttock: Qualifiers: Encounter type: initial encounter Qualified Code(s): T21.35XA - Burn of third degree of buttock, initial encounter Status: Acute Code(s): T21.35XA - Burn of third degree of buttock, initial encounter Plan 35-year-old male patient presenting with full-thickness mondragon involving the left buttock and left forearm after overdose. Patient is complaining of severe pain associated with these lesions. Patient is found to have a thick eschar which is densely adherent to the underlying subcutaneous tissue. Debridement of this eschar in both the left buttock and left forearm may expedite healing. Mainly concern is the patient's desire to return to the Street for drugs. He will need good wound care following debridement to prevent further infection of his wou nds. After discussion of the procedure, risks, and benefits, he consents to debridement of the left buttock and left forearm burn wounds. He will be added onto the operative schedule for tomorrow. I spent minutes with the patient and/or on the patient floor today, gr eater than?50% of which was spent counseling/coordinating care. Reason for contiued inpatient stay Substantial Risk for: harm to self
[2021-06-15] MEDS: oxyCODONE HCl Immed Release 5 MG TABLET PO ×3 (14:31→23:20)
[2021-06-15] MEDS: hydrOXYzine HCL 25 MG TABLET PO (14:32)
[2021-06-15] MEDS: QUEtiapine Fumarate 50 MG TABLET PO (14:32)
[2021-06-15] MEDS: Acetaminophen 325 MG TABLET 650 MG PO (19:14)
--- NOTE | 2021-06-15 19:53 | PC.NURSE ---
PT continues to complain of severe pain in left arm. It is unclear if pt took his dressing off or it fell off but patient comes to med window with no dressing. Elham Joseph contacted regarding pain level. 5mg Oxycodone ordered ONCE in addition to scheduled meds. Patient rates pain 10/10. Medicated with Oxycodone 5mg and Acetaminophen 325mg x 2 PO with effect pending. Report given to next nurse and they will dress the wound. See report.
[2021-06-15 21:59] VITALS: BP 129/72; PULSE 83; RESP 16; TEMP 36.6; O2SAT 95
[2021-06-15] MEDS: Melatonin 3 MG TABLET 6 MG PO (23:20)
[2021-06-15] MEDS: QUEtiapine Fumarate 300 MG TABLET PO (23:20)
[2021-06-15] MEDS: Silver Sulfadiazine 1 % Cream 20 GM TUBE 1 APPL TOPICAL (23:20)
[2021-06-15] MEDS: Ibuprofen 800 MG TABLET PO (23:20)
[2021-06-15] MEDS: clonazePAM 1 MG TABLET PO (23:21)
[2021-06-15] MEDS: traZODone HCL 100 MG TABLET 200 MG PO (23:51)
[2021-06-16 06:00] VITALS: BP 134/76; PULSE 86; RESP 16; O2SAT 98
[2021-06-16] MEDS: Divalproex Sodium 500 MG TABLET.DR PO ×2 (09:44→22:13)
[2021-06-16] MEDS: Venlafaxine HCl ER 75 MG CAP.ER.24H PO (09:44)
[2021-06-16] MEDS: QUEtiapine Fumarate 100 MG TABLET PO (09:44)
[2021-06-16] MEDS: Multivitamin TABLET 1 TAB PO (09:44)
[2021-06-16] MEDS: Ibuprofen 800 MG TABLET PO ×2 (09:47→16:13)
[2021-06-16] MEDS: hydrOXYzine HCL 25 MG TABLET PO ×3 (09:48→22:13)
[2021-06-16] MEDS: oxyCODONE HCl Immed Release 5 MG TABLET PO ×3 (09:48→22:12)
[2021-06-16] MEDS: Acetaminophen 325 MG TABLET 650 MG PO ×2 (15:12→22:13)
[2021-06-16] MEDS: QUEtiapine Fumarate 50 MG TABLET PO (15:31)
[2021-06-16] MEDS: Silver Sulfadiazine 1 % Cream 20 GM TUBE 1 APPL TOPICAL (16:14)
[2021-06-16] MEDS: diphenhydrAMINE HCL 25 MG TABLET PO ×2 (16:14→22:12)
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
[2021-06-16 18:00] VITALS: BP 126/73; PULSE 89; TEMP 36.6; O2SAT 95
--- NOTE | 2021-06-16 19:56 | PC.NURSE ---
Patient has continued to have pain to left forearm and left buttock surgical sites. Dr. Dat Cardona, Psychiatrist chief environmental commitment officer, was notified by this residential mortgage underwriter. Dr. Cardona texted this residential mortgage underwriter and said that Dr. Rico, from surgery,will see patient on Friday06/17/21 to evaluate the need for additional pain medication and possibly antibiotics. Patient was given this information. Next shifts will also be made aware.
[2021-06-16] MEDS: traZODone HCL 100 MG TABLET 200 MG PO (22:12)
[2021-06-16] MEDS: Melatonin 3 MG TABLET 6 MG PO (22:12)
[2021-06-16] MEDS: QUEtiapine Fumarate 300 MG TABLET PO (22:12)
[2021-06-16] MEDS: clonazePAM 1 MG TABLET PO (22:13)
[2021-06-17] MEDS: hydrOXYzine HCL 25 MG TABLET PO ×3 (04:29→19:18)
[2021-06-17] MEDS: oxyCODONE HCl Immed Release 5 MG TABLET PO ×3 (04:29→16:13)
[2021-06-17] MEDS: Ibuprofen 800 MG TABLET PO ×2 (04:29→16:13)
[2021-06-17] MEDS: QUEtiapine Fumarate 50 MG TABLET PO ×2 (04:29→16:13)
[2021-06-17] MEDS: diphenhydrAMINE HCL 25 MG TABLET PO ×3 (04:30→19:18)
[2021-06-17 06:00] VITALS: BP 121/65; PULSE 74; RESP 16; TEMP 37.3; O2SAT 97
[2021-06-17] MEDS: QUEtiapine Fumarate 100 MG TABLET PO (10:48)
[2021-06-17] MEDS: Venlafaxine HCl ER 75 MG CAP.ER.24H PO (10:49)
[2021-06-17] MEDS: Multivitamin TABLET 1 TAB PO (10:49)
[2021-06-17] MEDS: Divalproex Sodium 500 MG TABLET.DR PO ×2 (10:49→22:49)
[2021-06-17] MEDS: Nicotine Polacrilex 2 MG GUM 4 MG BUCCAL ×2 (12:23→16:08)
[2021-06-17] MEDS: Acetaminophen 325 MG TABLET 650 MG PO ×2 (13:08→19:19)
[2021-06-17] MEDS: Silver Sulfadiazine 1 % Cream 20 GM TUBE 1 APPL TOPICAL (13:09)
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
[2021-06-17] MEDS: oxyCODONE HCl Immed Release 5 MG TABLET 10 MG PO (20:06)
[2021-06-17] MEDS: traZODone HCL 100 MG TABLET 200 MG PO (22:48)
[2021-06-17] MEDS: QUEtiapine Fumarate 300 MG TABLET PO (22:49)
[2021-06-17] MEDS: Melatonin 3 MG TABLET 6 MG PO (22:49)
[2021-06-17] MEDS: clonazePAM 1 MG TABLET PO (22:50)
[2021-06-18] MEDS: Multivitamin TABLET 1 TAB PO (09:08)
[2021-06-18] MEDS: Venlafaxine HCl ER 75 MG CAP.ER.24H PO (09:08)
[2021-06-18] MEDS: QUEtiapine Fumarate 100 MG TABLET PO (09:08)
[2021-06-18] MEDS: Divalproex Sodium 500 MG TABLET.DR PO ×2 (09:09→21:22)
[2021-06-18] MEDS: oxyCODONE HCl Immed Release 5 MG TABLET 10 MG PO ×2 (09:13→18:33)
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
[2021-06-18 18:00] VITALS: BP 122/68; PULSE 84; TEMP 37.1; O2SAT 97
[2021-06-18] MEDS: Acetaminophen 325 MG TABLET 650 MG PO (18:33)
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
[2021-06-18] MEDS: Melatonin 3 MG TABLET 6 MG PO (21:21)
[2021-06-18] MEDS: traZODone HCL 100 MG TABLET 200 MG PO (21:22)
[2021-06-18] MEDS: QUEtiapine Fumarate 300 MG TABLET PO (21:22)
[2021-06-18] MEDS: hydrOXYzine HCL 25 MG TABLET PO (21:22)
[2021-06-18] MEDS: clonazePAM 1 MG TABLET PO (21:22)
[2021-06-18] MEDS: Ibuprofen 800 MG TABLET PO (21:22)
[2021-06-18] MEDS: diphenhydrAMINE HCL 25 MG TABLET PO (21:22)
[2021-06-19 06:00] VITALS: BP 143/78; PULSE 78; RESP 18; TEMP 36.8; O2SAT 96
[2021-06-19] MEDS: Ibuprofen 800 MG TABLET PO (09:20)
[2021-06-19] MEDS: diphenhydrAMINE HCL 25 MG TABLET PO (09:20)
[2021-06-19] MEDS: oxyCODONE HCl Immed Release 5 MG TABLET 10 MG PO (09:20)
[2021-06-19] MEDS: Divalproex Sodium 500 MG TABLET.DR PO (09:20)
[2021-06-19] MEDS: Multivitamin TABLET 1 TAB PO (09:20)
[2021-06-19] MEDS: QUEtiapine Fumarate 100 MG TABLET PO (09:20)
[2021-06-19] MEDS: hydrOXYzine HCL 25 MG TABLET PO (09:20)
[2021-06-19] MEDS: Venlafaxine HCl ER 75 MG CAP.ER.24H PO (09:20)
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
[2021-06-19] MEDS: Silver Sulfadiazine 1 % Cream 20 GM TUBE 1 APPL TOPICAL (11:06)
[2021-06-19] MEDS: Acetaminophen 325 MG TABLET 650 MG PO (11:06)
[2021-06-19] MEDS: Naloxone HCl Nasal TAKE HOME 4 MG SPRAY NOSTRILALT (13:53)
== END 2021-06-19 15:08 | disposition home or self-care (01) | DRG 751 ==
LOC: HO.ED 22:52 → HO.PM5 06-07 22:05
PROVIDERS: Admitting Provider Registered Nurse; Emergency Provider Student in an Organized Health Care Education/Training Program; PCP Internal Medicine; Visit Provider Social Worker
DX: F33.1 Major depressive disorder, recurrent, moderate (principal); R45.851 Suicidal ideations; T21.35XA Burn of third degree of buttock, initial encounter; F17.210 Nicotine dependence, cigarettes, uncomplicated; F43.10 Post-traumatic stress disorder, unspecified; F14.10 Cocaine abuse, uncomplicated; F11.10 Opioid abuse, uncomplicated; T22.352A Burn of third degree of left shoulder, initial encounter; X16.XXXA Contact with hot heating appliances, radiators and pipes, initial encounter; Z71.6 Tobacco abuse counseling; Z20.822 Contact with and (suspected) exposure to COVID-19; Z59.02 Unsheltered homelessness; Z79.1 Long term (current) use of non-steroidal anti-inflammatories (NSAID); Z79.899 Other long term (current) drug therapy
CPT/HCPCS: 36415; 80053; 80061; 80307; 82607; 82746; 83036; 83735; 84439; 84443; 85025; 87635; 93005; 99024; 99285; J2060; Q0163

== ENCOUNTER 2021-06-14 08:30 | Day surgery (SDC) | payer OTHER, SELFPAY ==
[2021-06-14 08:37] VITALS: BMI 31.9
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
[2021-06-14 11:21] VITALS: BP 131/85; PULSE 83; RESP 15; TEMP 36.7; O2SAT 96
[2021-06-14 11:26] VITALS: BP 132/90; PULSE 85; RESP 15; O2SAT 96
[2021-06-14 11:31] VITALS: BP 151/86; PULSE 83; RESP 16; O2SAT 95
[2021-06-14 11:36] VITALS: BP 148/61; PULSE 80; RESP 16; O2SAT 94
[2021-06-14 11:51] VITALS: BP 138/64; PULSE 72; RESP 16; O2SAT 95
[2021-06-14] MEDS: oxyCODONE HCl Immed Release 5 MG TABLET 10 MG PO (12:00)
[2021-06-14 12:06] VITALS: BP 153/97; PULSE 75; RESP 16; TEMP 36.7; O2SAT 95
== END 2021-06-14 12:19 | disposition home or self-care (01) ==
PROVIDERS: PCP Internal Medicine; Visit Provider Surgery
PROC: (CPT 16025; principal; 2021-06-14 10:00)
DX: T22.312A Burn of third degree of left forearm, initial encounter (principal); T21.35XA Burn of third degree of buttock, initial encounter; X16.XXXA Contact with hot heating appliances, radiators and pipes, initial encounter; Y93.89 Activity, other specified; Y92.9 Unspecified place or not applicable; Y99.8 Other external cause status; F11.20 Opioid dependence, uncomplicated; F31.9 Bipolar disorder, unspecified; F43.10 Post-traumatic stress disorder, unspecified; F90.9 Attention-deficit hyperactivity disorder, unspecified type; F17.210 Nicotine dependence, cigarettes, uncomplicated; Z79.899 Other long term (current) drug therapy
CPT/HCPCS: 16025; 88304; J0690; J1170; J2250; J2405; J3010

== ENCOUNTER 2021-06-21 18:37 | Emergency (ER) | payer OTHER, SELFPAY ==
[2021-06-21 18:40] VITALS: BP 164/100; PULSE 111; RESP 20; TEMP 36.9; O2SAT 95; BMI 27.3
--- NOTE | 2021-06-21 19:11 | ED_ITS ---
HPI - Psych General Chief Complaint: Psychiatric Symptoms Stated Complaint: crisis Time Seen by Provider: 06/21/21 18:59 Source: patient Mode of arrival: ambulatory History of Present Illness HPI Narrative: 35-year-old male with history of bipolar disorder comes in with recurrent reports of suicidal ideation states he has a plan to overdose but states that his last drug use was within the past 24 hours. Related Data Home Medications Medication Instructions Recorded Confirmed divalproex 500 mg tablet,delayed 1,000 mg PO BEDTIME 06/21/21 06/21/21 release divalproex 500 mg tablet,delayed 500 mg PO QAM 06/21/21 06/21/21 release hydroxyzine HCl 25 mg tablet 1 tab PO Q8H PRN 06/21/21 06/21/21 quetiapine 100 mg tablet 1 tab PO QAM 06/21/21 06/21/21 quetiapine 200 mg tablet 200 mg PO BEDTIME 06/21/21 06/21/21 trazodone 100 mg tablet 2 tab PO BEDTIME 06/21/21 06/21/21 Previous Rx's Medication Instructions Recorded acetaminophen 650 mg 650 mg PO Q6H PRN #60 tab 06/19/21 tablet,extended release clonidine HCl 0.1 mg tablet 0.1 mg PO BID PRN #30 tab 06/19/21 ibuprofen 800 mg tablet 800 mg PO Q6H PRN #30 tab 06/19/21 melatonin 3 mg tablet 6 mg PO BEDTIME #60 tab 06/19/21 multivitamin (Daily-Wagner) 1 tab PO DAILY #30 tab 06/19/21 Allergies Allergy/AdvReac Type Severity Reaction Status Date / Time No Known Allergies Allergy Verified 06/14/21 08:58 [No Known Allergies*] Review of Systems Verdana 4l Review of Systems: Verdana 4d Pertinent positives and Verdana 4d negatives as stated in HPI and 10 point review of systems is otherwise negative. Verdana 4d PMFSH Past Medical History Source: nursing notes reviewed Medical History ADHD Anxiety Bipolar 1 disorder, depressed Surgical History Hx of wisdom tooth extraction Family History Family History Mother Thyroid disease Skin cancer Depression Anxiety Father Diabetes Depression Anxiety Skin cancer Other Mental health disorder Substance use disorder Social History Social History Household Members: None Housing: Homeless Do you presently have visiting nurse or other home services: No Alcohol intake: unknown Patient Tobacco Use Status: Current someday Tobacco user Tobacco use type: Cigarette Second Hand Smoke Exposure: Yes Substance Use Type: Heroin and Opiates Advance Directives: No Advance Directives Information Provided: Yes service: No Current occupational status: unemployed Sexual orientation: Straight/Heterosexual Cognitive needs: No Hearing needs: No Vision needs: No Physical Exam Verdana 4l Vital Signs: Verdana 4d Verdana 4d Vital Signs: Verdana 4d Verdana 4Bd Last Vital Signs Verdana 4d Paint Spray Inspector New 4d Paint Spray Inspector New 4d Temp 98.4 F 06/21/21 18:40 Paint Spray Inspector New 4d Pulse 111 H 06/21/21 18:40 Paint Spray Inspector New 4d Resp 20 06/21/21 18:40 BP 164/100 H 06/21/21 18:40 Pulse Ox 95 06/21/21 18:40 BMI result Body Mass Index 27.3 VITAL SIGNS: Reviewed. GENERAL: Well developed, well nourished, in no acute distress. HEAD: Normocephalic/atraumatic, EYES: PERRLA, EOMI OROPHARYNX: no oral lesions noted, posterior pharynx clear NECK: Supple, no adenopathy LUNGS: Normal breath sounds. No adventitious sounds or accessory muscle use. SpO2<95> CARDIOVASCULAR: Regular rate and rhythm without noted murmurs ABDOMEN: Soft, non-tender, non-distended with bowel sounds. NEUROLOGIC: Alert and oriented x 4. Strength and sensation to light touch were grossly intact x 4, cranial nerves 2-12 are grossly intact. PSYCH: Normal affect Course Course Course Narrative: 35-year-old male with history of major depressive disorder and bipolar who was just discharged on 06/19 now re-presented after having used illicit substances again and states he has suicidal ideation with plans to overdose. He is otherwise medically cleared for further evaluation by the behavioral team. Reevaluation(s) Reevaluation #1: Patient placed in physician observation because the patient needed more time for evaluation by the behavioral team. At the time observation was started the patient's vital signs were stable, patient is alert and oriented, neuro: Nonfocal, CV RRR, lungs clear Time: 20:00 MDM - Psych Lab Data Labs: Lab Results 06/21/21 06/21/21 06/21/21 Range/Units 19:25 19:25 19:48 Urine Opiates Screen POSITIVE H (Not Detect) Urine Fentanyl Screen POSITIVE H (Not Detect) Ur Barbiturates Not Detected (Not Detect) Screen Valproic Acid 13.0 L (50.0-100.0) mcg/mL Ur Phencyclidine Scrn Not Detected (Not Detect) Ur Amphetamines Not Detected (Not Detect) Screen U Benzodiazepines Not Detected (Not Detect) Scrn Urine Cocaine Screen Not Detected (Not Detect) U Marijuana (THC) Not Detected (Not Detect) Screen COVID-19 ([facility]) Negative (Negative) COVID-19 Clin Com See Note Discharge Plan Discharge Clinical Impression: Bipolar 1 disorder, Suicidal ideation, MDD (major depressive disorder) Patient Disposition: Still a Patient Prescriptions: No Action divalproex 500 mg tablet,delayed release (DR/EC) 1,000 mg PO BEDTIME 0RF divalproex 500 mg tablet,delayed release (DR/EC) 500 mg PO QAM 0RF hydroxyzine HCl 25 mg tablet 1 tab PO Q8H PRN (Reason: itch) 0RF trazodone 100 mg tablet 2 tab PO BEDTIME 0RF quetiapine 200 mg tablet 200 mg PO BEDTIME 0RF quetiapine 100 mg tablet 1 tab PO QAM 0RF clonidine HCl 0.1 mg Tablet 0.1 mg PO BID PRN (Reason: hyperarousal) Qty: 30 0RF Protocol: Hold for SBP< HOLD for SBP < : 90 acetaminophen 650 mg tablet extended release 650 mg PO Q6H PRN (Reason: Headache/Pain Mild Scale (1-3)) Qty: 60 0RF multivitamin [Daily-Wagner] Tablet 1 tab PO DAILY Qty: 30 0RF ibuprofen 800 mg Tablet 800 mg PO Q6H PRN (Reason: Pain, Moderate (Pain Scale 4-6) Qty: 30 0RF melatonin 3 mg Tablet 6 mg PO BEDTIME Qty: 60 0RF
[2021-06-21 19:47] LABS: COVID-19 Test Negative (Negative); IDNOW Serial# 9DD0AD1C
[2021-06-21 19:48] LABS: Amphetamine Screen Urine Not Detected (Not Detect); Barbiturates, Urine Not Detected (Not Detect); Benzodiazepines Screen Urine Not Detected (Not Detect); Cannabinoid Screen Urine Not Detected (Not Detect); Cocaine Screen Urine Not Detected (Not Detect); Fentanyl, urine POSITIVE (Not Detect); Opiate Screen Urine POSITIVE (Not Detect); Phencyclidine Screen Urine Not Detected (Not Detect)
[2021-06-21] MEDS: Silver Sulfadiazine 1 % Cream 20 GM TUBE 1 APPL TOPICAL (23:05)
[2021-06-21] MEDS: QUEtiapine Fumarate 200 MG TABLET PO (23:08)
[2021-06-21] MEDS: Melatonin 3 MG TABLET 6 MG PO (23:08)
[2021-06-21] MEDS: Ibuprofen 800 MG TABLET PO (23:08)
[2021-06-21] MEDS: traZODone HCL 100 MG TABLET 200 MG PO (23:08)
[2021-06-21] MEDS: Divalproex Sodium 500 MG TABLET.DR 1000 MG PO (23:08)
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
[2021-06-22 01:50] VITALS: BP 112/64; PULSE 98; RESP 20; TEMP 36.9; O2SAT 96
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
[2021-06-22 06:54] VITALS: RESP 20
--- NOTE | 2021-06-22 07:24 | PC.NURSE ---
patient appears to remain asleep at present respirations are even and unlabored patient appears in no distress
[2021-06-22] MEDS: Multivitamin TABLET 1 TAB PO (08:57)
[2021-06-22] MEDS: QUEtiapine Fumarate 100 MG TABLET PO (08:57)
[2021-06-22] MEDS: Divalproex Sodium 500 MG TABLET.DR PO (08:57)
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
--- NOTE | 2021-06-22 09:43 | MHC.RECOVSUP ---
Recovery Support note: Patient is a 35 year old [place]ian speaking male who [place] [facility] [place] due to SI with a plan to overdose. This feature writer met with patient to discuss substance use and recovery supports. Patient reports he did not feel the pain due to his mondragon was being well managed so he bought some heroin and used while staying with a friend. Patient states the friend told him he would have to leave in the morning. Patient reports used additional heroin and that he thought he wouldn't wake up. Patient confirms this was an intentional overdose attempt. Patient reported to this feature writer that he does not feel detox will be helpful as he only used one day and he is not in withdrawal, in addition he feels he needs help with his mental health. Patient reported to this feature writer that if he goes to detox he will leave and kill himself. Patient reports he would like to discharge and go kill himself. Encouraged patient that ED staff is still working to determine the best plan for him at this time and for him to reach out to staff if he has any needs. Attempted to assist patient in getting numbers off his phone however he was not able to unlock his phone. Patient reports he has a assistant women's basketball coach through [employer] and that he would like to speak with him. This feature writer contacted [employer] to obtain contact info for assistant women's basketball coach. Discussed case with ED provider and CARE Team. This feature writer is available as needed.
--- NOTE | 2021-06-22 09:46 | PC.NURSE ---
wound care staff came to attend to patient, t/w returned to pod from main ED and the wound care staff asked for silvadene. wound care staff spoke loudly/sternly toward patient. patient left room and walked to aquino bathroom using foul language toward staff and patient went into bathroom and was banging surfaces there. t/w went to redirect patient and patient stated leave me alone. t/w left patient in that area. patient began to escalate again and came out of bathroom again. one of the wound care staff came toward escalating patient and t/w came out of bathroom area and directed that staff to leave (patient) him alone soon thereafter the staff left unit.
--- NOTE | 2021-06-22 09:47 | MHC.CARE ---
CARE Team observed Pt and wound care staff having a poor interaction. Pt was observed by t/w exiting room to take space from staff.. Woundcare RN continued to loudly speak to Pt while he was walking away. CARE Team intervened and requested the staff to give the Pt space as there actions were further escalating Pts behaviors. CARE Team notifed lost charge card clerk regarding this interaction.
--- NOTE | 2021-06-22 10:32 | MHC.CARE ---
CARE Team met with pt at the request of responding Security Officers.? Pt had escalated in the pod and was yelling and striking inanimate objects after a negative encounter with a staff member from Wound Care.? Pt discussed his encounter with the staff member and how he felt during the encounter.? He discussed his substance use, denying he needed Recovery resources as he is not an addict though he did mention earlier in the conversation that ?The addict in me? caused him to sign out of [facility] a few days ago to ?Get something (Presumably heroin) for my pain.?? Pt had nodded off while sitting on a radiator and burned his buttocks prior to his admission to the unit.? This occurred after using heroin.? He stated his tolerance for opiates was such that the 5mg of pain medications he was receiving on the unit ?Did not touch the pain.? He stated that he needed an inpatient admission as he is suicidal.? He stated that he had purposely gone to detox to lower his tolerance so he could more efficiently overdose.? He did not disclose when this was and when asked he began speaking on another topic.? He mentioned other suicide attempts via overdose with one that occurred after his discharge from the unit though he appeared to be unable to speak on what day/date that occurred.? He stated that he woke up in a parking lot ?somewhere? going on to explain that ?Sometimes I just wake up after I try to overdose.? Pt stated that were he to go to detox, he would sign out and go ?Kill myself?.
[2021-06-22] MEDS: Acetaminophen 325 MG TABLET 650 MG PO (11:34)
--- NOTE | 2021-06-22 14:13 | MHC.CARE ---
After consulting with Elham Joseph, RESIN REMOVER plan for Pt to be discharged to follow up with outpatient recommendations from . Pt placed on alert with [facility].
== END 2021-06-22 14:47 | disposition home or self-care (01) ==
PROVIDERS: Emergency Provider Student in an Organized Health Care Education/Training Program; PCP Internal Medicine
DX: F31.9 Bipolar disorder, unspecified (principal); R45.851 Suicidal ideations; F41.9 Anxiety disorder, unspecified; F17.200 Nicotine dependence, unspecified, uncomplicated; Z20.822 Contact with and (suspected) exposure to COVID-19; Z79.899 Other long term (current) drug therapy
CPT/HCPCS: 36415; 80164; 80307; 87635; 99284